=== PATIENT | female | born 1945 | race Caucasian/White ===

== ENCOUNTER 2019-12-14 18:27 | Observation (INO) | payer MEDICARE, OTHER, SELFPAY ==
--- NOTE | 2019-12-14 18:57 | ECG_ITS ---
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 Measurements Intervals [place] Rate: 88 P: 24 VT: 164 QRS: -35 QRSD: 153 T: 104 QT: 397 QTc: 483 Interpretive Statements SINUS RHYTHM MARKED LEFT AXIS DEVIATION [QRS AXIS < -30] LEFT BUNDLE BRANCH BLOCK [120+ ms QRS DURATION, 80+ ms Q/S IN V1/V2, 85+ ms R IN I/aVL/V5/V6] No previous ECG available for comparison Electronically Signed On 12-15-2019 9:52:29 CDT by Peter Moncada M.D. [id number]
--- NOTE | 2019-12-14 18:57 | XRR_ITS ---
PROCEDURE INFORMATION: Exam: XR Chest, 1 View Exam date and time: 12/14/2019 7:31 PM Age: 74 years old Clinical indication: Radiating; Patient HX: Chest pain, warm feeling spreading from left to right; Additional info: Cp TECHNIQUE: Imaging protocol: XR of the chest Views: Frontal portable upright view of the chest. COMPARISON: No relevant prior studies available. FINDINGS: Lungs: The lungs are clear bilaterally. The pulmonary vasculature is normal. Pleural space: No pleural effusion. No pneumothorax. Heart/Mediastinum: The heart is normal in size and contour. Bones/joints: No acute chest wall abnormality identified. Rightward thoracolumbar spinal curvature. Organs: The gallbladder is likely surgically absent, with metallic clips overlying the gallbladder fossa. XR/XR chest 1V portable [id number] IMPRESSION: 1. No acute cardiopulmonary abnormality identified. 2. Prior cholecystectomy.
[2019-12-14 19:02] VITALS: BP 176/91; PULSE 89; RESP 18; TEMP 36.8; O2SAT 96; BMI 25.7
[2019-12-14 21:49] LABS: Basophils % 0.5 %; Eosinophils # 0.1 10^3/uL (0.0-0.8); Eosinophils % 0.8 %; Hematocrit 38.1 % (37.0-47.0); Hemoglobin 12.1 g/dL (11.5-15.3); Lymphocytes # 2.5 10^3/uL (0.8-4.8); Lymphocytes % 33.5 %; Mean Corpuscular HGB Conc 31.8 g/dL (30.0-36.0); Mean Corpuscular Hemoglobin 28.8 pg (28.0-34.0); Mean Corpuscular Volume 90.7 fL (81-99); Mean Platelet Volume 9.8 fL (7.4-10.4); Monocytes # 0.4 10^3/uL (0.2-0.9); Monocytes % 5.1 %; Neutrophils # 4.47 10^3/uL (1.8-7.7); Nucleated Red Blood Cells % 0 %; Platelet Count 366 10^3/cmm (130-400); Red Cell Distribution Width 12.3 % (12.1-15.1); White Blood Count 7.5 10^3/uL (4.0-10.0)
--- NOTE | 2019-12-14 21:59 | W.ED.CHESTPA ---
HPI - Chest Pain General: Chief Complaint: Chest Pain Stated Complaint: sob/ sore throat/ warm sens on chest Time Seen by Provider: 12/14/19 21:35 History of Present Illness: HPI narrative: Patient is a 74-year-old female comes to the ED with chest pain and shortness of breath. Patient has a past medical history of GERD, hypothyroidism, PVCs, seasonal allergies and hypertension. Patient was seen by family clinic today and they did a d-dimer test on patient and told her that it was elevated. Patient also describes having some bilateral lower extremity swelling with episodic pain behind the knee. Family clinic then told patient to come to the ED to check legs for blood clot. Patient says her chest pain started today. She describes the chest pain more as a discomfort and it is very brief and episodic. Pain is not sharp or intense. It is more of a dull discomfort in the chest. She is currently not having any chest pain while here in the ED. The shortness of breath that she has is also episodic and brief. She says she only gets the shortness of breath when she is up moving. She states it is mild and noticed that it started approximately 2 weeks ago. Patient also endorses having some worsening GERD symptoms over the past couple days as well. Denies any fever, chills, productive cough, hemoptysis, nausea/vomiting, bladder or bowel symptoms. Associated symptoms: Reports abdominal pain (Epigastric pain.) and dyspnea (Only during exertion.); Deny fever(s), nausea, palpitations or vomiting Review of Systems Const: Denies: fever(s), chills or fatigue Eyes: Denies: change in vision or eye discomfort ENMT: Reports: throat pain (Patient has had a mild sore throat for the past 2 weeks due to allergies and nasal drainage.), nasal discharge (Patient has allergies and has drainage that goes down the back of her throat causing irritation.) and post nasal drip; Denies: odynophagia or nasal congestion Card: Reports: chest pain (Chest discomfort) and dyspnea on exertion; Denies: palpitations, edema, swelling of feet/ankles or orthopnea Resp: Reports: dyspnea (Only during exertion.); Denies: productive cough or non-productive cough GI: Reports: abdominal pain (Epigastric pain.); Denies: nausea, vomiting, diarrhea, constipation or hematochezia : Denies: flank pain, dysuria or hematuria Musc: Denies: neck pain, back pain or extremity swelling Skin/Breast: Denies: rash or new lesions Neuro: Denies: headache(s), numbness in extremities or weakness in extremities Physical Exam Const: COMMON NORMALS: no acute distress, patient oriented x3, healthy appearing and alert GENERAL APPEARANCE: cooperative and comfortable HENMT: COMMON NORMALS: normocephalic HEAD & SCALP: normocephalic MOUTH: Normal oral and palatal mucosa present THROAT: uvula midline and posterior oropharynx abnormal cobblestoning Eye: COMMON NORMALS: Equal, round and reactive pupils present PUPIL: Yes Equal, round and reactive pupils present Neck/C-Spine: COMMON NORMALS: supple GENERAL: Yes normal visual inspection Resp: COMMON NORMALS: normal respiratory effort, No retractions, No use of accessory muscles and clear to auscultation bilaterally EFFORT & INSPECTION: Yes able to speak in complete sentences, No tachypneic, No respiratory distress, No labored and No Actively coughing AUSCULTATION: clear to auscultation bilaterally Cardio: COMMON NORMALS: regular rate, regular rhythm, S1 normal heart sound present, S2 normal heart sound present, No gallops present (Cardio), No clicks present (Cardio), No murmurs present (Cardio) and Peripheral pulses 2+ throughout RATE: regular rate RHYTHM: regular rhythm HEART SOUNDS: S1 normal heart sound present and S2 normal heart sound present PERIPHERAL PULSES: Peripheral pulses 2+ throughout GI: COMMON NORMALS: Normal to inspection, nondistended, normoactive bowel sounds present, Soft to palpation and no masses PALPATION: Yes Soft to palpation and Yes Tenderness to palpation present (GI) Details: other (Mild epigastric area tenderness.) : COMMON NORMALS: Yes no CVA tenderness BLADDER/KIDNEY EXAM: Yes no CVA tenderness Back/Pelvis: COMMON NORMALS: no CVA tenderness Extremity: COMMON NORMALS: normal to inspection and no pedal edema Neuro: COMMON NORMALS: patient oriented x3 and moves all extremities SENSORIUM/ORIENTATION: Yes alert Skin: COMMON NORMALS: no rashes or lesions noted GENERAL SKIN EXAM: no rashes or lesions noted and dry skin Course Consultations: Consultation #1: I spoke with Dr. Nix about patient case and and he agreed to bring patient in on observation. Vital Signs: Vital signs: Vital Signs Temperature 97.7 F 08/26/20 01:15 Pulse Rate 82 12/15/19 01:15 Respiratory Rate 14 12/15/19 01:15 Blood Pressure 176/88 12/15/19 01:15 Pulse Oximetry 94 12/15/19 01:15 MDM - Chest Pain MDM Narrative: Medical decision making narrative: Patient is a 74-year-old female comes to the ED with some chest pain and shortness of breath. Patient was sent over here by her PCP due to an elevated d-dimer. Physical exam was unremarkable patient appears well in no acute distress. D-dimer 2.11. Ultrasound venous duplex of both right and left lower extremity showed no DVTs or blood clots. CTA of chest was performed that showed multiple bilateral segmental and subsegmental PEs. Patient was given a dose of Lovenox while here in the ED. I contacted Dr. Nix about patient case and he would like patient to be brought in on observation. I told Dr. Myers and he will be placing the orders. Patient understood and agreed with plan. Lab Data: Attestation: I reviewed the patient's lab results. Labs: Lab Results 12/14/19 12/14/19 12/14/19 Range/Units 21:44 21:44 21:44 WBC 7.5 (4.0-10.0) 10^3/ uL RBC 4.20 (4.1-5.3) 10^6/u L Hgb 12.1 (11.5-15.3) g/dL Hct 38.1 (37.0-47.0) % MCV 90.7 (81-99) fL MCH 28.8 (28.0-34.0) pg MCHC 31.8 (30.0-36.0) g/dL RDW 12.3 (12.1-15.1) % Plt Count 366 (130-400) 10^3/c mm MPV 9.8 (7.4-10.4) fL Neut % (Auto) 60.0 % Lymph % (Auto) 33.5 % Eaton % (Auto) 5.1 % Eos % (Auto) 0.8 % Baso % (Auto) 0.5 % Neut # (Auto) 4.47 (1.8-7.7) 10^3/u L Lymph # (Auto) 2.5 (0.8-4.8) 10^3/u L Eaton # (Auto) 0.4 (0.2-0.9) 10^3/u L Eos # (Auto) 0.1 (0.0-0.8) 10^3/u L Baso # (Auto) 0.0 (0.0-0.1) 10^3/u L Nucleated RBC % (a uto) 0 % Nucleated RBCs # 0.0 /100WBC D-Dimer (0-0.59) ug/mIFE U Sodium 140 (136-145) mmol/L Potassium 4.3 (3.5-5.1) mmol/L Chloride 101 (98-107) mmol/L Carbon Dioxide 26 (22-29) mmol/L Anion Gap 17.3 (5-19) BUN 15 (8-23) mg/dL Creatinine 1.0 H (0.5-0.9) mg/dL GFR Calculation Not Reportable Glucose 114 (65-115) mg/dL Calculated Osmolal ity 287 (285-295) mOsm/k g Calcium 10.1 (8.5-10.5) mg/dL Total Bilirubin 0.3 (0.15-1.2) mg/dL AST 29 (0-32) U/L ALT 19 (0-33) U/L Alkaline Phosphata se 57 (35-105) IU/L Troponin T Baselin e 23 H (0-10) ng/L NT-Pro-B Natriuret Pep 180 (0-450) pg/mL Total Protein 8.0 (6.6-8.7) g/dL Albumin 5.1 (3.5-5.2) g/dL Globulin 2.9 (1.3-4.6) g/dL 12/14/19 Range/Units 21:44 WBC (4.0-10.0) 10^3/ uL RBC (4.1-5.3) 10^6/u L Hgb (11.5-15.3) g/dL Hct (37.0-47.0) % MCV (81-99) fL MCH (28.0-34.0) pg MCHC (30.0-36.0) g/dL RDW (12.1-15.1) % Plt Count (130-400) 10^3/c mm MPV (7.4-10.4) fL Neut % (Auto) % Lymph % (Auto) % Eaton % (Auto) % Eos % (Auto) % Baso % (Auto) % Neut # (Auto) (1.8-7.7) 10^3/u L Lymph # (Auto) (0.8-4.8) 10^3/u L Eaton # (Auto) (0.2-0.9) 10^3/u L Eos # (Auto) (0.0-0.8) 10^3/u L Baso # (Auto) (0.0-0.1) 10^3/u L Nucleated RBC % (a uto) % Nucleated RBCs # /100WBC D-Dimer 2.11 H (0-0.59) ug/mIFE U Sodium (136-145) mmol/L Potassium (3.5-5.1) mmol/L Chloride (98-107) mmol/L Carbon Dioxide (22-29) mmol/L Anion Gap (5-19) BUN (8-23) mg/dL Creatinine (0.5-0.9) mg/dL GFR Calculation Glucose (65-115) mg/dL Calculated Osmolal ity (285-295) mOsm/k g Calcium (8.5-10.5) mg/dL Total Bilirubin (0.15-1.2) mg/dL AST (0-32) U/L ALT (0-33) U/L Alkaline Phosphata se (35-105) IU/L Troponin T Baselin e (0-10) ng/L NT-Pro-B Natriuret Pep (0-450) pg/mL Total Protein (6.6-8.7) g/dL Albumin (3.5-5.2) g/dL Globulin (1.3-4.6) g/dL Imaging Data^: CXR: Attestation: I personally reviewed and interpreted this imaging study as follows: My impression: Chest x-ray showed no acute findings. Pending final radiology report. US Vascular: Attestation: I personally reviewed and interpreted this imaging study as follows: Radiologist's impression: Ultrasound venous duplex of lower extremities bilaterally no DVTs or blood clots seen. CTA Chest: Attestation: I personally reviewed and interpreted this imaging study as follows: Radiologist's impression: [address] [place] [address] CT Scan Report Signed Patient: Kristen Jimenes Unit #: [id number] : 1945 Age/Sex: 74 / F ADM Date: 12/14/19 Loc: ER Room/Bed: Attending Dr: Ordering Provider/Ordering MD: Martin Casiano Date of Service: 12/14/19 Procedure(s): CT angio chest PE protcl [id number] Accession Number(s): [id number] Report Number: [id number] PROCEDURE INFORMATION: Exam: CT Angiography Chest With Contrast Exam date and time: 12/14/2019 11:14 PM Age: 74 years old Clinical indication: Shortness of breath; Chest pain; Additional info: SOB with elevated d-dimer TECHNIQUE: Imaging protocol: Computed tomographic angiography of the chest with intravenous contrast. 3D rendering (Not supervised by radiologist): MIP and/or 3D reconstructed images were created by the technologist. Radiation optimization: All CT scans at this facility use at least one of these dose optimization techniques: automated exposure control; mA and/or kV adjustment per patient size (includes targeted exams where dose is matched to clinical indication); or iterative reconstruction. Contrast material: VISI; Contrast volume: 77 ml; Contrast route: INTRAVENOUS (IV); COMPARISON: CR XR chest 1V portable [id number] 12/14/2019 7:17 PM RADIATION DOSE METRICS: Total DLP (mGy-cm): 624.27 FINDINGS: Pulmonary arteries: Multiple bilateral segmental to subsegmental pulmonary emboli. Aorta: Unremarkable. No aortic aneurysm. No aortic dissection. Lungs: Unremarkable. No consolidation. No masses. Pleural space: Unremarkable. No pneumothorax. No pleural effusion. Heart: Unremarkable. No cardiomegaly. No pericardial effusion. Lymph nodes: Unremarkable. No enlarged lymph nodes. Stomach and bowel: Diverticulosis without diverticulitis. Bones/joints: Unremarkable. No acute fracture. Soft tissues: Unremarkable. CT/CT angio chest PE protcl [id number] IMPRESSION: 1. Multiple bilateral segmental to subsegmental pulmonary emboli. 2. Diverticulosis without diverticulitis. Radiation Dose CTDIVOL = (mGy): DLP = 624.27 (mGy-cm) Dictated By: Domenic Rider MD Signed By: Domenic Rider MD Signed Date/Time: 12/15/1911 DD/ EKG Data^: EKG 1: Attestation: I personally reviewed and interpreted this EKG as follows: EKG interpretation date: 12/14/19 Interpretation: Sinus sinus rhythm, 88 bpm, no ST segment elevation or depression seen. Left bundle branch block. Discharge Plan Discharge Patient Disposition: Placed in Observation Admit Provider: Matilda Nix Clinical Impression: Pulmonary embolism, bilateral Condition: Stable Referrals: Leon Epps DO [Primary Care Provider] - Discharge Date/Time: 12/15/19 01:16 Coding Level of Care Code ED [employer] Consultant for Chg Fwd Exam Comprehensive
--- NOTE | 2019-12-14 22:00 | USCV_ITS ---
Kristen Jimenes Age: 74 Gender: F : 1945 Exam Date: 12/14/2019 22:52 Ordering Phys: Martin Casiano Technologist: Laura Mercado Exam Location: [facility] – [place] Indication: leg pain HISTORY: Lower extremity pain. PROCEDURES: Venous duplex imaging was performed in bilateral lower extremities. The following venous structures were evaluated: common femoral vein, profunda vein, proximal portion of the greater saphenous vein, superficial femoral vein, and the popliteal vein. In addition, the posterior tibial and peroneal trunk were evaluated. FINDINGS: Normal 2-D Doppler and augmentation and compressibility throughout the lower extremity venous structures. Additional imaging through the proximal calf veins also reveals no thrombus. Limited evaluation of the greater saphenous vein is patent with no thrombus. Cystic area measuring 5.4x1.1x3.5cm noted medial to right knee. CONCLUSIONS No evidence of right lower extremity DVT. No evidence of left lower extremity DVT. Lobulated Popliteal cyst measuring 5.4 x 1.1 x 3.5cm Ron Bernabe MD (Electronically Signed) Final Date: 15 December 2019 09:46 S
[2019-12-14 22:12] LABS: Troponin(5th) Baseline 23 ng/L (0-10)
[2019-12-14 22:22] LABS: Alanine Aminotransferase 19 U/L (0-33); Albumin Level 5.1 g/dL (3.5-5.2); Alkaline Phosphatase 57 IU/L (35-105); Anion Gap 17.3 (5-19); Aspartate Amino Transferase 29 U/L (0-32); Blood Urea Nitrogen 15 mg/dL (8-23); Calcium 10.1 mg/dL (8.5-10.5); Carbon Dioxide 26 mmol/L (22-29); Chloride 101 mmol/L (98-107); Globulin 2.9 g/dL (1.3-4.6); Glucose 114 mg/dL (65-115); NT Pro B Type Natriuretic Pept 180 pg/mL (0-450); Osmolality Calculated 287 mOsm/kg (285-295); Potassium 4.3 mmol/L (3.5-5.1); Sodium 140 mmol/L (136-145); Total Bilirubin 0.3 mg/dL (0.15-1.2)
[2019-12-14 22:57] LABS: D Dimer 2.11 ug/mIFEU (0-0.59)
--- NOTE | 2019-12-14 23:04 | CTR_ITS ---
PROCEDURE INFORMATION: Exam: CT Angiography Chest With Contrast Exam date and time: 12/14/2019 11:14 PM Age: 74 years old Clinical indication: Shortness of breath; Chest pain; Additional info: SOB with elevated d-dimer TECHNIQUE: Imaging protocol: Computed tomographic angiography of the chest with intravenous contrast. 3D rendering (Not supervised by radiologist): MIP and/or 3D reconstructed images were created by the technologist. Radiation optimization: All CT scans at this facility use at least one of these dose optimization techniques: automated exposure control; mA and/or kV adjustment per patient size (includes targeted exams where dose is matched to clinical indication); or iterative reconstruction. Contrast material: VISI; Contrast volume: 77 ml; Contrast route: INTRAVENOUS (IV); COMPARISON: CR XR chest 1V portable [id number] 12/14/2019 7:17 PM RADIATION DOSE METRICS: Total DLP (mGy-cm): 624.27 FINDINGS: Pulmonary arteries: Multiple bilateral segmental to subsegmental pulmonary emboli. Aorta: Unremarkable. No aortic aneurysm. No aortic dissection. Lungs: Unremarkable. No consolidation. No masses. Pleural space: Unremarkable. No pneumothorax. No pleural effusion. Heart: Unremarkable. No cardiomegaly. No pericardial effusion. Lymph nodes: Unremarkable. No enlarged lymph nodes. Stomach and bowel: Diverticulosis without diverticulitis. Bones/joints: Unremarkable. No acute fracture. Soft tissues: Unremarkable. CT/CT angio chest PE protcl [id number] IMPRESSION: 1. Multiple bilateral segmental to subsegmental pulmonary emboli. 2. Diverticulosis without diverticulitis. Radiation Dose CTDIVOL = (mGy): DLP = 624.27 (mGy-cm)
[2019-12-14] MEDS: hydrocortisone 100 mg/2 mL SDV IVP (23:37)
[2019-12-14] MEDS: diphenhydrAMINE 50 mg/mL SDV 1mL IVP (23:37)
[2019-12-14] MEDS: sodium chloride 0.9% 500 ML IV (23:37)
[2019-12-14] MEDS: iodixanol 320 mg/mL 100mL Btl IV (23:51)
[2019-12-15] VITALS (9 sets, daily range): BP systolic 138–177; BP diastolic 66–88; PULSE 63–88; RESP 14–24; TEMP 36.4–36.8; O2SAT 92–98
--- NOTE | 2019-12-15 00:41 | P.HP_ITS ---
Providers/Chief Complaint Admitting Physician: Matilda Nix MD Primary Care Provider: Leon Epps DO Chief Complaint: sob/ sore throat/ warm sens on chest History of Present Illness Kristen Jimenes is a 74 year old female who carries history of hypertension, hypothyroidism no other significant past medical history came in with chief complaint of shortness of breath and chest discomfort. Patient is stating that her symptoms started about 1 week ago with shortness of breath which gradually got worse, she started experiencing chest pain on exertional activities, she never experienced these kind of symptoms before, she is a non-smoker, nonalcoholic, very healthy for age, lives independently. She did not spike any fever, no nausea, vomiting, diarrhea, change in her stool consistency, no swelling of her lower extremities, recent traveling, she is not leading a sedentary lifestyle, she is not on any hormonal therapy, denies history of night sweats, weight loss, fever, cancer. She is endorsing to family history of clotting disorder, her mother was on Coumadin and her first clotting disorder was identified in her 40s, patient herself never had any abortions, her children and grandchildren are healthy. Patient is stating that for last couple of years she has been having on and off episodes of palpitations without any aggravating or relieving factors, she was diagnosed with PVCs, and never had any worsening of symptoms. Diagnostics in the ER revealed segmental and subsegmental bilateral pulmonary embolism without right heart strain, BNP 180, no EKG changes for right heart strain however left bundle branch block present, troponin XX 3, patient asymptomatic at the time of my evaluation, hypertensive systolic blood pressure 176 mmHg Review of Systems Const: Reports: body aches and fatigue; Denies: fever(s) or chills Eyes: Denies: change in vision ENMT: Denies: throat pain Card: Reports: chest pain, palpitations and dyspnea on exertion; Denies: swelling of feet/ankles, pre-syncope or orthopnea Resp: Reports: dyspnea GI: Denies: abdominal pain or nausea : Denies: flank pain Musc: Denies: neck pain Skin/Breast: Denies: rash Neuro: Denies: headache(s) Psych: Denies: anxiety Endo: Denies: polyuria Feliberto/Lymph: Denies: easy bruising All/Imm: Denies: urticaria Medications/Allergies Home Medications Medication Instructions Recorded Confirmed Last Taken Type alprazolam 0.5 mg PO BID 12/14/19 12/14/19 12/13/19 History ascorbic acid (vitamin C) [Vitamin 250 mg PO DAILY 12/14/19 12/14/19 12/13/19 History C] aspirin [Aspirin Low Dose] 81 mg PO DAILY 12/14/19 12/14/19 12/13/19 History fenofibrate nanocrystallized 145 mg PO DAILY 12/14/19 12/14/19 12/14/19 History fexofenadine [Deanne Allergy] 60 mg PO BID 12/14/19 12/14/19 12/13/19 History fluticasone propionate 2 spray INTRANASAL DAILY 12/14/19 12/14/19 12/13/19 History levothyroxine 88 mcg PO DAILY 12/14/19 12/14/19 12/14/19 History loratadine 10 mg PO EVERY OTHER DAY 12/14/19 12/14/19 Unknown History lutein 10 mg PO DAILY 12/14/19 12/14/19 12/14/19 History metoprolol succinate 25 mg PO DAILY 12/14/19 12/14/19 12/14/19 History xnxirtevsxpz-Pr-rssw-minerals 1 tab PO DAILY 12/14/19 12/14/19 12/13/19 History [Multiple Vitamin, Womens] omega 0-dtu-dac-fish oil [Fish Oil] 1 cap PO DAILY 12/14/19 12/14/19 12/14/19 History omeprazole magnesium [Prilosec OTC] 20 mg PO DAILY 12/14/19 12/14/19 12/13/19 History Allergies Allergy/AdvReac Type Severity Reaction Status Date / Time amoxicillin Allergy ALGY-Rash Verified 12/14/19 21:46 PFSH Acute 2 PFSH: Medical History Diverticulosis History of normal mammogram Hypertension Hypothyroidism Normal colonoscopy Surgical History Hx laparoscopic cholecystectomy Family History Mother Clotting disorder Mother had clotting disorder in her 40s and was on Coumadin Social History Smoking and tobacco status: never smoked Alcohol intake: never Substance/Drug Use: never Lives independently: Yes Housing: House Vitals/I&O/Wt Last Vital Signs Temp 98.3 F 12/14/19 19:02 Pulse 88 12/15/19 00:00 Resp 15 12/15/19 00:00 BP 164/72 12/15/19 00:00 Pulse Ox 95 12/15/19 00:00 Weight last 48 hrs Weight 68.039 kg Physical Exam Narrative: EXAM NARRATIVE: Very pleasant elderly female No active restaurant distress Hypertensive at the moment Saturating well on room air Bilateral breath sounds without adventitious sounds S1, S2 no tachycardia or heart failure Abdomen soft nontender nondistended bowel sound present Neurologically no focal deficit EOMI, PERRLA GCS 15 Appropriate mood and affect Lower extremity varicose veins, symmetrical appearance of bilateral lower extremities Data : 12/14/19 21:44 12/14/19 21:44 A&P Assessment and plan (1) Pulmonary embolism, bilateral: Acute unprovoked symptomatic PE without right heart strain Segmental subsegmental unprovoked pulmonary embolism, family history of clotting disorder in her mother, patient herself never had any abortions, no recent traveling, no use of hormonal therapy, leading an active lifestyle, I would go ahead and start Eliquis, she received Lovenox in the ER Request echo in the morning, lower extremity Dopplers She might need hematology consult for follow-up for her acute symptomatic PE I would not get clotting disorder work-up at this time Patient is stating that her colonoscopies and mammograms have been unremarkable Status: Acute Additional A&P Information Hypertension: Might need lisinopril with her current home regimen Hypothyroidism: Continue levothyroxine Hypertriglyceridemia continue fenofibrate GERD: Omeprazole milligrams daily. DVT prophylaxis: Not indicated currently on Eliquis Full code Cardiac diet Attestations Medical Necessity Statement*: Anticipating discharge in less than 48 hours cu rrently need anticoagulation for acute symptomatic unprovoked PE Time Spent in Patient Care: (>than 50% of time spent in counselling and/or direct pt care on unit) . 40 minutes Coding Level of Care Code Acute [place] Worker for Chg Fwd Diagnoses Pulmonary embolism, bilateral I26.99
[2019-12-15] MEDS: enoxaparin 80 mg/0.8 mL Syringe 70 MG SUBCUT (00:57)
--- NOTE | 2019-12-15 00:57 | ECG_ITS ---
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 Measurements Intervals [place] Rate: 67 P: 27 NE: 191 QRS: -34 QRSD: 153 T: 80 QT: 464 QTc: 491 Interpretive Statements SINUS RHYTHM MARKED LEFT AXIS DEVIATION [QRS AXIS < -30] LEFT BUNDLE BRANCH BLOCK [120+ ms QRS DURATION, 80+ ms Q/S IN V1/V2, 85+ ms R IN I/aVL/V5/V6] Compared to ECG 12/14/2019 19:14:18 No significant changes Electronically Signed On 12-15-2019 10:25:11 CDT by Peter Moncada M.D. [id number]
[2019-12-15 02:44] LABS: Anion Gap 12.7 (5-19); Blood Urea Nitrogen 14 mg/dL (8-23); Calcium 8.9 mg/dL (8.5-10.5); Carbon Dioxide 26 mmol/L (22-29); Chloride 102 mmol/L (98-107); Creatinine Clr Calc Pharmacy 56.7003; Glucose 136 mg/dL (65-115); Osmolality Calculated 282 mOsm/kg (285-295); Potassium 3.7 mmol/L (3.5-5.1); Sodium 137 mmol/L (136-145)
[2019-12-15 02:52] LABS: Troponin 5 2HR 28.36 ng/L (0-10)
--- NOTE | 2019-12-15 07:11 | PC.NURSE ---
Shift Events: Patient arrived to unit via wheelchair. Up adlib, AO x 4. No complaints of pain or shortness of breath. Remains on room air. Snack and water provided. Questions answered to patient's satisfaction. VSS.
[2019-12-15] MEDS: apixaban 5 mg Tablet PO ×2 (08:08→14:19)
[2019-12-15] MEDS: pantoprazole DR 40 mg Tablet PO (08:09)
[2019-12-15] MEDS: metoprolol succinate ER (24 HR) 25 mg Tablet PO (08:09)
[2019-12-15] MEDS: fenofibrate 145 mg Tablet PO (08:09)
[2019-12-15] MEDS: levothyroxine 88 mcg Tablet PO (08:09)
--- NOTE | 2019-12-15 08:46 | CT_ITS ---
WS: [id number] CT ABDOMEN PELVIS TECHNIQUE: Noncontrast CT of the abdomen and pelvis with coronal and sagittal reformatted images. CLINICAL INFORMATION: LLQ abdominal density COMPARISON: CT 9 18,018 DLP: 580.[address] scans at [facility] use at least one of these dose optimization techniques: automat ed exposure control; mA and/or kV adjustment per patient size (includes targeted exams where dose is matched to clinical indication); or iterative reconstruction. FINDINGS: Noncontrast liver is normal. Normal spleen. Splenic granulomas. Cholecystectomy clips. Normal GE junc tion. Lung bases are well aerated. Adrenal glands are normal. Fatty atrophy of the pancreas. No hydro nephrosis in either kidney. Normal caliber abdominal aorta. Mild aortic calcification. Sigmoid diverticulosis. No evidence of acute diverticulitis. No evidence of small or large bowel obst ruction. No free fluid in the pelvis. No abdominal or pelvic lymphadenopathy. No inguinal lymphadenop ath0y. Moderate S-shaped lumbar scoliosis. CT/CT abdomen pelvis wo con [id number] IMPRESSION: 1. No acute abdominal or pelvic findings. 2. Prior cholecystectomy. 3. No hydronephrosis in either kidney. 4. No abdominal or pelvic lymphadenopathy. 5. No free fluid in the pelvis. 6. Sigmoid diverticulosis. No evidence of acute diverticulitis.
--- NOTE | 2019-12-15 12:04 | USCV_ITS ---
Jalil Kristen Age: 74 Gender: F : 1945 Exam Date: 12/15/2019 12:34 Ordering Phys: Arnulfo Kay MD Technologist: Ada Phillips Exam Location: [facility] Indication: Bilateral PE BP: 138 / 67 HR: 82 Rhythm: Sinus Technical Quality: Fair MEASUREMENTS (Male / Female) Normal Values 2D ECHO LV Diastolic Diameter PLAX 3.5 cm 4.2 - 5.9 / 3.9 - 5.3 cm LV Systolic Diameter PLAX 1.9 cm LV Chamber Size 4.3 cm IVS Diastolic Thickness 2.0 cm 0.6 - 1.0 / 0.6 - 0.9 cm IVS Systolic Thickness 2.1 cm LVPW Diastolic Thickness 1.3 cm 0.6 - 1.0 / 0.6 - 0.9 cm LVPW Systolic Thickness 1.2 cm RV Chamber Size 2.5 cm LVOT Diameter 1.8 cm LV Ejection Fraction 2D Teich 78.4 % LV Ejection Fraction MOD 2C 50.0 % LV Ejection Fraction 2C AL 57.0 % LA Diameter 3.6 cm LA Width 2.9 cm LA Height 5.3 cm RA Width 3.1 cm RA Height 4.6 cm Aorta at Sinotubular Diameter 2.4 cm M-MODE LV Diastolic Diameter MM 5.5 cm 4.2 - 5.9 / 3.9 - 5.3 cm LV Systolic Diameter MM 3.6 cm LV Ejection Fraction MM Teich 64.5 % IVS Diastolic Thickness MM 1.2 cm 0.6 - 1.0 / 0.6 - 0.9 cm IVS Systolic Thickness MM 1.9 cm LVPW Diastolic Thickness MM 1.5 cm 0.6 - 1.0 / 0.6 - 0.9 cm LVPW Systolic Thickness MM 1.3 cm Aortic Annulus Diameter 3.6 cm LA Ao Ratio MM 1.0 MV E Point Septal Separation 0.3 cm DOPPLER AV Peak Velocity 144.0 cm/s LVOT Peak Velocity 111.0 cm/s AV Area Cont Eq vti 2.1 cm squared AV Area Cont Eq pk 2.0 cm squared MV Area PHT 4.9 cm squared Mitral E to A Ratio 0.7 MV E' Velocity 13.0 cm/s Mitral E to MV E' Ratio 9.1 Mitral E to LV E' Lateral Ratio 6.8 Mitral E to LV E' Septal Ratio 13.5 TR Peak Velocity 308.0 cm/s TR Peak Gradient 38.0 mmHg TR Mean Velocity 241.0 cm/s TR Mean Gradient 23.7 mmHg TR Velocity Time Integral 89.4 cm TV Peak E Velocity 69.0 cm/s Right Atrial Pressure 3.0 mmHg Pulmonary Artery Systolic Pressu 40.9 mmHg PV Peak Velocity 82.0 cm/s RV Acceleration Time 0.1 s RV Ejection Time 0.3 s RV AcT/ET 0.2 FINDINGS Left Ventricle Normal left ventricular size, systolic function and mildly increased wall thickness, with no regional wall motion abnormalities. Left ventricular ejection fraction is estimated at 65%. Normal diastolic function. Abnormal septal motion consistent with conduction abnormality. Right Ventricle Normal right ventricular size and systolic function. Right ventricular systolic pressure 44 mmHg. Right Atrium Normal right atrial size. Right atrial pressure estimated at 8 mmHg. Left Atrium Upper normal left atrial size. Mitral Valve Structurally normal mitral valve. No mitral valve stenosis. Trace mitral valve regurgitation. Aortic Valve Aortic valve not well visualized. Probably tricuspid aortic valve. No aortic valve stenosis. No aortic valve regurgitation. Tricuspid Valve Structurally normal tricuspid valve. Mild tricuspid valve regurgitation. Pulmonic Valve No pulmonary valve stenosis. Trace pulmonary valve regurgitation. Pericardium No pericardial effusion. Inferior vena cava mildly dilated at 22 mm. Aorta Normal size aortic root and proximal ascending aorta. CONCLUSIONS 1. Normal left ventricular size, systolic function and mildly increased wall thickness, with no regional wall motion abnormalities. Left ventricular ejection fraction is estimated at 65%. Normal diastolic function. Abnormal septal motion consistent with conduction abnormality. 2. Mild tricuspid valve regurgitation. 3. Mild pulmonary hypertension with pulmonary artery pressure estimated at 44 mmHg. 4. Right atrial pressure estimated at 8 mmHg. 5. No prior similar studies to compare. Siria Bone MD (Electronically Signed) Final Date: 15 December 2019 14:23 S
--- NOTE | 2019-12-15 12:09 | ECG_ITS ---
[facility] Test Date: 2019-12-15 Pat Name: Kristen Jmienes Department: Room: 111 Gender: Female Application Development Liaison: : 1945 Requested By: Arnulfo Kay Order Number: [id number] Leslie MD: Peter Moncada M.D. Measurements Intervals [place] Rate: 72 P: 28 FL: 200 QRS: -36 QRSD: 156 T: 93 QT: 464 QTc: 509 Interpretive Statements SINUS RHYTHM MARKED LEFT AXIS DEVIATION [QRS AXIS < -30] LEFT BUNDLE BRANCH BLOCK [120+ ms QRS DURATION, 80+ ms Q/S IN V1/V2, 85+ ms R IN I/aVL/V5/V6] Compared to ECG 12/15/2019 05:54:28 No significant changes Electronically Signed On 12-15-2019 18:06:53 CDT by Peter Moncada M.D. [id number]
--- NOTE | 2019-12-15 12:10 | PM.DCS ---
Discharge Providers Date of Admission: 12/15/19 00:35 Date of Discharge: December 15, 2019 Attending Provider at Admission: Matilda Nix MD Attending Provider at Discharge: Arnulfo Kay MD Primary Care Provider: Leon Epps DO Diagnoses at Discharge Discharge Diagnosis (1) Pulmonary embolism, bilateral: Status: Acute Reason for Visit Reason for Visit: sob/ sore throat/ warm sens on chest Hospital Course Discharge Summary: This is a 74-year-old female with a past medical history of hypertension, hypothyroidism, no other significant past medical history who presents to [facility] due to complaints of chest pain and shortness of breath. Patient was admitted to [facility] for chest pain and shortness of breath secondary to multiple bilateral segmental to sub-segmental pulmonary emboli. Patient's troponin at baseline was 23, EKG showed left axis deviation, left bundle branch block, T wave inversions in lateral chest leads, no previous EKG to compare to. Patient hemodynamics were within normal limits, did not require any on any oxygen, ambulating without any significant symptomatology, no repeat episodes of chest pain or shortness of breath. Echocardiogram on discharge showed: Normal left ventricular size, systolic function and mildly increased wall thickness, with no regional wall motion abnormalities. Left ventricular ejection fraction is estimated at 65%.Patient was discharged on Eliquis, with repeat blood work in a week. In terms of the etiology of pulmonary embolism, no history of recent surgeries, no immobility, no falls, no travel, does have a family history of DVTs in her mother, no family history of other coagulopathies, colonoscopy 2 years ago was within normal limits, is been many years since her last mammogram, she does not have any significant smoking history. Patient was advised to follow-up with her primary care provider for routine cancer screening, including mammography. Patient was advised that as she is being discharged on blood thinner, if she were to fall come back to emergency room, if she were to have head trauma come back to emergency room, if she were to have bloody or black stools come back to the emergency room. Physical Exam Const: COMMON NORMALS: no acute distress and patient oriented x3 HENMT: COMMON NORMALS: normocephalic HEAD & SCALP: normocephalic Neck/C-Spine: COMMON NORMALS: no JVD Resp: COMMON NORMALS: normal respiratory effort, No retractions, No use of accessory muscles and clear to auscultation bilaterally AUSCULTATION: clear to auscultation bilaterally Cardio: COMMON NORMALS: no JVD, regular rate, regular rhythm, S1 normal heart sound present and S2 normal heart sound present RATE: regular rate RHYTHM: regular rhythm HEART SOUNDS: S1 normal heart sound present and S2 normal heart sound present GI: COMMON NORMALS: Normal to inspection, nondistended, normoactive bowel sounds present, Soft to palpation, non-tender, No hepatosplenomegaly present, no masses and no bruits PALPATION: Yes Soft to palpation and Yes No hepatosplenomegaly present Extremity: COMMON NORMALS: capillary refill normal, no clubbing, cyanosis or edema, no calf tenderness and no pedal edema Neuro: COMMON NORMALS: patient oriented x3 Psych: COMMON NORMALS: mental status grossly normal Discharge Data Data Completed and Pending: Completed Studies During Hospitalization Category Date Time Status CT abdomen pelvis wo con [id number] Stat Cat Scan 12/15/19 08:[address] angio chest PE protcl [id number] Urge nt Cat Scan 12/14/19 23:04 Completed XR chest 1V denisse ble [id number] Stat Exams 12/14/19 18:57 [place] [id number] Urgent Ultrasound 12/14/19 22:00 Completed Pending at discharge Category Date Time Status Troponin(5th) 2 H our. Timed Lab 12/15/19 14:09 Ordered Troponin(5th) 6 h our. Timed Lab 12/15/19 18:09 Ordered Troponin(5th) Bas hany Stat Lab 12/15/19 12:09 Ordered CV echo complete* [id number] Routine Ultrasound 12/15/19 01:33 Ordered CV echo complete* [id number] Stat Ultrasound 12/15/19 12:04 Ordered Labs from last 24 hours 12/15/19 12/14/19 12/14/19 02:10 21:44 21:44 WBC RBC Hgb Hct MCV MCH MCHC RDW Plt Count MPV Neut % (Auto) Lymph % (Auto) [place] % (Auto) Eos % (Auto) Baso % (Auto) Neut # (Auto) Lymph # (Auto) [place] # (Auto) Eos # (Auto) Baso # (Auto) Nucleated RBC % (a uto) Nucleated RBCs # D-Dimer 2.11 H Sodium 137 Potassium 3.7 Chloride 102 Carbon Dioxide 26 Anion Gap 12.7 BUN 14 Creatinine 0.8 GFR Calculation Not Reportable Glucose 136 H Calculated Osmolal ity 282 L Calcium 8.9 Total Bilirubin AST ALT Alkaline Phosphata se Troponin T Baselin e 23 H Troponin T 120 Min [place] Delta Troponin T NT-Pro-B Natriuret Pep Total Protein Albumin Globulin 12/14/19 12/14/19 12/14/19 21:44 21:44 02:10 WBC 7.5 RBC 4.20 Hgb 12.1 Hct 38.1 MCV 90.7 MCH 28.8 MCHC 31.8 RDW 12.3 Plt Count 366 MPV 9.8 Neut % (Auto) 60.0 Lymph % (Auto) 33.5 [place] % (Auto) 5.1 Eos % (Auto) 0.8 Baso % (Auto) 0.5 Neut # (Auto) 4.47 Lymph # (Auto) 2.5 [place] # (Auto) 0.4 Eos # (Auto) 0.1 Baso # (Auto) 0.0 Nucleated RBC % (a uto) 0 Nucleated RBCs # 0.0 D-Dimer Sodium 140 Potassium 4.3 Chloride 101 Carbon Dioxide 26 Anion Gap 17.3 BUN 15 Creatinine 1.0 H GFR Calculation Not Reportable Glucose 114 Calculated Osmolal ity 287 Calcium 10.1 Total Bilirubin 0.3 AST 29 ALT 19 Alkaline Phosphata se 57 Troponin T Baselin e Troponin T 120 Min [place] 28.36 H Delta Troponin T TNP NT-Pro-B Natriuret Pep 180 Total Protein 8.0 Albumin 5.1 Globulin 2.9 Vitals: Last Vital Signs Temp 97.5 F L 12/15/19 07:25 Pulse 63 12/15/19 07:25 Resp 21 H 12/15/19 07:25 BP 138/67 12/15/19 07:25 Pulse Ox 95 12/15/19 07:25 Discharge Plan Discharge Patient Disposition: Home Condition: Stable Prescriptions: New Earlinequis DVT-PE Treat 30D Start 5 mg (74 tabs) tablets,dose pack See Rx Instructions .ROUTE .COMPLEX Qty: 74 RF: 0 Continued Deanne Allergy 60 mg Tablet 60 mg PO BID RF: 0 Aspirin Low Dose 81 mg Tablet,Delayed Release (Dr/Ec) 81 mg PO DAILY RF: 0 levothyroxine 88 mcg tablet 88 mcg PO DAILY RF: 0 alprazolam 0.5 mg tablet 0.5 mg PO BID PRN (Reason: Anxiety) RF: 0 Vitamin C 250 mg Tablet 250 mg PO DAILY RF: 0 metoprolol succinate 25 mg tablet extended release 24 hr 25 mg PO DAILY RF: 0 fluticasone propionate 50 mcg/actuation spray,suspension 2 spray INTRANASAL DAILY RF: 0 loratadine 10 mg tablet 10 mg PO EVERY OTHER DAY RF: 0 Multiple Vitamin, Womens Tablet 1 tab PO DAILY RF: 0 Prilosec OTC 20 mg Tablet,Delayed Release (Dr/Ec) 20 mg PO DAILY RF: 0 fenofibrate nanocrystallized 145 mg tablet 145 mg PO DAILY RF: 0 lutein 10 mg Tablet 10 mg PO DAILY RF: 0 Fish Oil 300-1,000 mg Capsule 1 cap PO DAILY RF: 0 Discharge Orders: Discharge Order (Routine); Ordered 12/15/19 Ordered By: Arnulfo Kay Referrals: Brent Hamm MD [Hospitalist] - 7-10 days ([facility] WILL CALL YOU WITH A FOLLOW UP APPOINTMENT WITH DR. HAMM AT THE [facility] TO BE SEEN IN 7-10 DAYS. ) Leon Epps DO [Primary Care Provider] - 4-7 days (YOU WILL HAVE AN APPOINTMENT WITH DR EPPS AT [facility] ON AT 11:40 AM. IF YOU HAVE ANY QUESTIONS PLEASE CALL [phone]) Discharge Diet: Cardiac Discharge Activity: Resume usual activity Patient Instructions: Apixaban (By mouth), Pulmonary Embolism (DC) Activity Restrictions/Additional Instructions: -Please follow-up with primary care physician for breast cancer screening Discharge Attestations Time Spent in Discharge Care*: less than 30 min Quality Metrics Clinical Quality Measures During this hospital stay, did patient experience: None Coding Level of Care Code Acute Certified Real Estate Appraiser for Chg Fwd Exam Comprehensive Diagnoses Pulmonary embolism, bilateral I26.99
[2019-12-15 13:03] LABS: Troponin(5th) Baseline 20 ng/L (0-10)
--- NOTE | 2019-12-15 14:09 | ECG_ITS ---
[facility] Test Date: 2019-12-15 Pat Name: Kristen Jimenes Department: Room: 111 Gender: Female Employment Advisor: : 1945 Requested By: Arnulfo Kay Order Number: [id number] Leslie MD: Peter Moncada M.D. Measurements Intervals [place] Rate: 68 P: 25 OR: 191 QRS: -40 QRSD: 154 T: 59 QT: 451 QTc: 481 Interpretive Statements SINUS RHYTHM MARKED LEFT AXIS DEVIATION [QRS AXIS < -30] LEFT BUNDLE BRANCH BLOCK [120+ ms QRS DURATION, 80+ ms Q/S IN V1/V2, 85+ ms R IN I/aVL/V5/V6] Compared to ECG 12/15/2019 13:03:30 No significant changes Electronically Signed On 12-15-2019 18:15:37 CDT by Peter Moncada M.D. [id number]
[2019-12-15 14:58] LABS: Troponin 5 2HR 19.85 ng/L (0-10)
[2019-12-15 15:07] LABS: Troponin 5 2HR Delta -0.15 ABS# (0-10)
[2019-12-15] MEDS: apixaban 5 mg Tablet 10 MG PO (17:35)
--- NOTE | 2019-12-15 18:09 | ECG_ITS ---
[facility] Test Date: 2019-12-15 Pat Name: Kristen Jimenes Department: Room: 111 Gender: Female Venereal Disease Control Head: : 1945 Requested By: Arnulfo Kay Order Number: [id number] Leslie MD: Peter Moncada M.D. Measurements Intervals [place] Rate: 75 P: 41 [place]: 199 QRS: -36 QRSD: 152 T: 97 QT: 431 QTc: 482 Interpretive Statements SINUS RHYTHM MARKED LEFT AXIS DEVIATION [QRS AXIS < -30] LEFT BUNDLE BRANCH BLOCK [120+ ms QRS DURATION, 80+ ms Q/S IN V1/V2, 85+ ms R IN I/aVL/V5/V6] Compared to ECG 12/15/2019 14:45:45 No significant changes Electronically Signed On 12-15-2019 18:38:40 CDT by Peter Moncada M.D. [id number]
[2019-12-15 18:51] LABS: Troponin 5 6HR 18.81 ng/L (0-10)
[2019-12-15 18:54] LABS: Troponin 5 6HR Delta -1.19 ng/L (0-12)
--- NOTE | 2019-12-15 19:36 | PC.NURSE ---
Patient was given discharge instructions and verbalized understanding. Patient signed discharge paper at 1930. VSS and patient has no complaints at this time. Oxygen saturation 97 percent on room air. IV removed with catheter intact.
--- NOTE | 2019-12-15 19:53 | PC.NURSE ---
Patient left via ambulatory with funeral car driver.
--- NOTE | 2019-12-17 08:23 | PC.RESP ---
PATIENT DOES NOT HAVE A QUALIFYING HX OF LUNG DISEASE AND DOES NOT QUALIFY FOR PULMONARY REHAB AT THIS TIME.
== END 2019-12-15 19:54 | disposition home or self-care (01) ==
LOC: ER 12-15 00:34 → CSU 12-15 07:44
PROVIDERS: Emergency Medicine; Admitting Provider Internal Medicine; Emergency Provider Physician Assistant; PCP Family Medicine; Visit Provider Family Medicine
DX: I26.99 Other pulmonary embolism without acute cor pulmonale (principal); I44.7 Left bundle-branch block, unspecified; I10 Essential (primary) hypertension; E03.9 Hypothyroidism, unspecified; I36.1 Nonrheumatic tricuspid (valve) insufficiency; E78.1 Pure hyperglyceridemia; K21.9 Gastro-esophageal reflux disease without esophagitis; I27.20 Pulmonary hypertension, unspecified; Z90.49 Acquired absence of other specified parts of digestive tract; K57.30 Diverticulosis of large intestine without perforation or abscess without bleeding; Z79.899 Other long term (current) drug therapy; Z79.82 Long term (current) use of aspirin; Z79.890 Hormone replacement therapy
CPT/HCPCS: 12345; 36415; 71045; 71275; 74176; 80048; 80053; 83880; 84484; 85025; 85378; 93005; 93306; 93970; 96361; 96372; 96374; 96375; 97165; 99282; 99285; G0378; J1200; J1650; J1720; J7040; Q9967

== ENCOUNTER 2020-01-10 09:54 | Outpatient (CLI) | payer MEDICARE, OTHER, SELFPAY ==
--- NOTE | 2020-01-10 18:51 | ONC CON_ITS ---
Dr. Aggarwal New Patient Note Patient: Kristen Jimenes Unit #: [id number]: 1945 Dicatated By: Brent Aggarwal M.D.Date of Visit: Jan 10, 2020 Onc MED New Patient/Consult Referring Physician: Arnulfo Kay Chief Complaint: Pulmonary embolism. History of Present Illness: This is a 74 year-old woman with a recent episode of pulmonary embolism. On 12/14/2019 she had presented to the emergency room with shortness of breath. She has been having symptoms intermittently for as much as 2 weeks, but an episode of more severe sharp pain in her lateral left chest area prompted her to see her primary care provider who recommended that she go to the emergency room. Her evaluation there included a CT pulmonary angiogram which showed multiple bilateral segmental to subsegmental pulmonary emboli. There were no pulmonary nodules, enlarged lymph nodes, or other evidence of underlying malignancy. Bilateral lower extremity venous Doppler study showed no evidence for deep vein thrombosis. She was admitted to the hospital and she began anticoagulation with apixaban. CT abdomen/pelvis the following day also showed no evidence for underlying malignancy or other acute pathology. Echocardiogram showed mild tricuspid valve regurgitation and mild pulmonary hypertension. There is normal left ventricular systolic function with estimated ejection fraction at 65%. She was discharged home to continue anticoagulation with apixaban. She has been feeling pretty good generally. She still has somewhat limited activity, but at least some if not most of that is related to her knee problems. Her ECOG score is 1. She has good appetite. She has no fever, night sweats, or hot flashes. She says her breathing is okay now. She does not complain of cough. She has had only very occasional chest pain since the hospitalization. Her heart is occasionally irregular, but that is not new. She does have some acid reflux, and that has been worse since her medication was changed from pantoprazole to omeprazole. She has some constipation, but her bowel function has been adequate with stool softeners. She complains that her bladder and her uterus have fallen, but bladder function has been okay other than occasional mild hesitancy. She has pain in her knees and legs, right worse than left. She does not complain of headache. She has had some lightheadedness since she started the apixaban. She has no focal neurologic symptoms. Past Medical History: Her medical history consists of gastroesophageal reflux disease, hyperlipidemia, hypertension, and hypothyroidism. Past Surgical History: Her surgical/procedural history includes cholecystectomy and left breast lumpectomy x 2 for benign disease. Medications: Eliquis 1 Tablet (of 2.5 mg) Oral b.i.d., Fenofibrate 1 Tablet (of 145 mg) Oral daily, Fish Oil 1 Capsule (of 1200 mg) Oral daily, Levothyroxine Sodium 1 Tablet (of 88 mcg) Oral daily, Loratadine 1 Tablet (of 10 mg) Oral daily, Lutein 1 Tablet (of 20 mg) Oral daily, Metoprolol Succinate ER 1 Tablet Tablet SR 24 HR Oral daily, Multivitamin 1 Tablet Oral daily, PriLOSEC 1 Capsule (of 20 mg) Capsule Delayed Release Oral daily, Probiotic 1 Capsule Oral daily, Stool Softener 2 - 3 Tablet (of 100 mg) Oral daily, Vitamin C 3 - 4 Capsule (of 500 mg) Oral daily Allergies: Amoxicillin, contrast dye , and food dye. Social History: Ms. Jimenes is . She smoked for couple of years when she was much younger. She does not drink alcohol. Family History: Father of heart failure at age 86. Mother still living at age 94. She has a pacemaker and she has macular degeneration. A brother is in good health and age 74. Her maternal grandfather had bladder cancer and a maternal great-grandmother had breast cancer. Review Of Symptoms: Constitutional - Her energy is OK, but she has limited activity. Appetite is good and weight is stable. No fever, night sweats, or hot flashes. ECOG score is 1, Eyes - She thinks her vision may be a little worse. She has been told she has early cataracts, ENMT - No hearing loss. She has tinnitus. She has allergy related sinus symptoms. No mouth sores. No sore throat or difficulty swallowing, Hematologic/Lymphatic - No abnormal bruising or bleeding, Respiratory - She was having shortness of breath, but her breathing is OK now. No cough. No pleuritic pain or hemoptysis, Cardiovascular - No angina pain. Her heart is occasionally irregular, Gastrointestinal - No nausea or vomiting. She has acid reflux. It has not been as well-controlled since her medication was changed from pantoprazole to omeprazole. She has constipation, but it is adequately managed with stool softeners. No blood in the stool or black stools, Genitourinary (F) - No dysuria or hematuria. No urinary frequency. No urgency or incontinence. She sometimes has mild hesitancy, Musculoskeletal - She has pain in her knees and legs, right worse than left, Integumentary - She had a slight skin rash on the lower legs when she first started the apixaban, but it is better now, Neurologic - No headache. She has had a little bit of lightheadedness at times since she started Eliquis. No numbness or tingling. No other focal neurologic symptoms, Psychiatric - She has some anxiety. No depression. She does not sleep real well. Vital Signs: Performed on Jan 10, 2020 11:07: 0, 25.71, 1.73 sq.m, 64.00 in, 98 %, 67 /min, 20 /min, 188/78 mm(hg) (HIGH), 98.3 F (LOW), and 149.8 lbs (HIGH). Physical Examination: Constitutional - She appears to be in good general health, Eyes - Sclerae nonicteric. Conjunctivae clear, ENMT - No lesions noted in the oral cavity, Neck - No mass or thyromegaly, Hematologic/Lymphatic - No cervical, clavicular, or axillary adenopathy, Respiratory - Lungs are clear with good air movement bilaterally, Cardiovascular - Heart rhythm is regular. There is no murmur, gallop, or rub noted, Abdomen - Soft and non-tender. Liver and spleen are not enlarged. There is no abdominal mass or ascites noted and there is no inguinal adenopathy, Back/Spine - No spine or CVA tenderness noted, Extremities - No edema. There are small superficial varicosities in both lower legs. Posterior tibial pulses are palpable bilaterally, Integumentary - No rashes. No suspicious skin lesions noted, Neurologic - No focal neurologic deficits noted. Impression: 1. The patient with recent episode of unprovoked pulmonary embolism. The source is uncertain. Lower extremity venous Doppler studies were negative. 2. There is no evidence of underlying malignancy on her CT pulmonary angiogram or CT abdomen/pelvis. Her other medical illnesses include: 3. Hypertension. 4. Hyperlipidemia. 5. Hypothyroidism. 6. GERD. 7. Allergic rhinitis. Plan: This patient has had a significant episode of unprovoked pulmonary embolism. Under the circumstances, I do feel that long-term anticoagulation is appropriate, as she will have a significant risk for further thromboembolism if she is not anticoagulated. As yet there is no apparent cause. In particular, there is no evidence for underlying malignancy. I am not going to undertake an evaluation for hereditary thrombophilia, as it would appear to be very unlikely clinically and it also would not change my recommendations for her management, which is to continue apixaban 5 mg twice daily for 6 to 12 months. If she is doing well at that point she can then transition to the maintenance dose of 2.5 mg twice daily. I will check with her pharmacy to see if we can get her PPI changed back to pantoprazole, as I do want to minimize any risk of GI bleeding with her anticoagulation. She is going to continue her regular follow-up with Dr. Epps. I will see her again only as needed. Signed By: Brent Aggarwal M.D. <<Signature on File>>
== END 2020-01-10 09:55 | disposition home or self-care (01) ==
PROVIDERS: PCP Family Medicine; Visit Provider Internal Medicine Medical Oncology
DX: I26.99 Other pulmonary embolism without acute cor pulmonale (principal); I10 Essential (primary) hypertension; E78.5 Hyperlipidemia, unspecified; E03.9 Hypothyroidism, unspecified; K21.9 Gastro-esophageal reflux disease without esophagitis; J30.9 Allergic rhinitis, unspecified
CPT/HCPCS: 99205

== ENCOUNTER 2020-01-14 07:44 | Outpatient (CLI) | payer MEDICARE, OTHER, SELFPAY ==
--- NOTE | 2020-01-14 07:51 | MR_ITS ---
WS: [id number] MRI RIGHT KNEE HISTORY: KNEE JOINT INSTABILITY COMPARISON: None available. Anterior cruciate ligament: Thickening and abnormal signal throughout the ACL. High-grade tear centra lly, tear may be complete. Few fibers in the anterior bundle are present but displaced and abnormal s ignal. Posterior cruciate ligament: Intact. Medial collateral ligament: Intact. Posterior lateral corner structures: Intact. Medial menisci: Horizontal tear in the posterior horn. Horizontal tear extends to the inferior articu lar surface. There is slight extrusion of the meniscus from the joint line. Lateral meniscus: Abnormal signal throughout the entire posterior horn. Blunting of the free edge and abnormal signal and fluid extend into the meniscal root. Extensor mechanism: Distal quadriceps tendon and patellar tendons are intact. Fluid and soft tissue: Small suprapatellar joint effusion. Large complex lobulated Rick's cyst. Cyst extends over a length of greater than 5.8 cm. Osseous and articular structures: Patellofemoral compartment: Chondromalacia involving the medial and lateral patellar facets. There is a full-thickness cartilage defect at the patellar eminence. No marrow edema or fracture. Medial compartment: Moderate narrowing medial compartment. Partial extrusion of the meniscus from the joint line with significant loss of cartilage. Marginal osteophytes with no marrow edema or fracture . Lateral compartment: Moderate narrowing of the lateral compartment with osteophytes from the joint li ne. Largest osteophyte measures 10 mm extending laterally from the femoral condyle. Marked extrusion of the meniscus from the joint. Loss of cartilage. Small amount of fluid adjacent to the popliteus tendon near the fibular head. Fluid collection measur es 12 mm. MR/MR knee RT wo con* [id number] IMPRESSION: 1. High-grade tear, probably complete or near complete ACL. 2. Complex tears posterior horns of the medial and lateral menisci. 3. Large Rick's cyst. 4. Tricompartment moderate osteoarthritis with joint space narrowing, chondrom alacia and osteophytes. 5. 12 mm cyst near the popliteus tendon. Suspect ganglion or bursal collection .
== END 2020-01-14 07:45 | disposition home or self-care (01) ==
LOC: RADWPI 07:48
PROVIDERS: PCP Family Medicine; Visit Provider Family Medicine
DX: M25.361 Other instability, right knee (principal); S83.511A Sprain of anterior cruciate ligament of right knee, initial encounter; M71.21 Synovial cyst of popliteal space [Baker], right knee; M17.11 Unilateral primary osteoarthritis, right knee; M22.41 Chondromalacia patellae, right knee; M25.761 Osteophyte, right knee; S83.281A Other tear of lateral meniscus, current injury, right knee, initial encounter; S83.241A Other tear of medial meniscus, current injury, right knee, initial encounter; X58.XXXA Exposure to other specified factors, initial encounter
CPT/HCPCS: 73721

== ENCOUNTER 2020-02-01 06:58 | Outpatient (CLI) | payer MEDICARE, OTHER, SELFPAY ==
--- NOTE | 2020-02-01 07:09 | ECG_ITS ---
[facility] Test Date: 2020-02-01 Pat Name: Kristen Jimenes Department: Room: Gender: Female Mailing Specialist: : 1945 Requested By: Santos Cifuentes Order Number: [id number] Leslie MD: Santos Cifuentes M.D. Interpretive Statements NAME OF STUDY: LEXISCAN SESTAMIBI STRESS TEST INDICATION: Chest Pain PROCEDURE: At the baseline, the EKG revealed sinus bradycardia left bundle branch block. Some nonspecific T wave changes. The baseline blood pressure was 170/79 mm Hg with a heart rate of 55 beats/min. Lexiscan was infused over a period of 20 seconds. A total of 0.4 milligrams of Lexiscan was infused. The stress phase was continued for a total of 5 minutes. Heart rate at the end of the stress phase was 84 with a blood pressure 146/72. The EKG at the peak infusion revealed no significant changes. Sestamibi was injected 20 seconds after the Lexiscan infusion. Blood pressure at the end of the recovery phase was 144/79 with a heart rate of 82 per minute. CONCLUSION: 1. No significant EKG changes with the LexiScan infusion 2. No LexiScan induced chest pain or cardiac arrhythmia 3. Normal blood pressure and heart rate response 4. Sestamibi/sestamibi perfusion scan pending; see separate report. Electronically Signed On 02-01-2020 18:12:05 CDT by Santos Cifuentes M.D. [id number]
--- NOTE | 2020-02-01 07:09 | NMCV_ITS ---
NM tiffanie perf SPECT r/s* [id number] Kristen Jimenes Age: 74 Gender: F : 1945 Exam Date: 02/01/2020 08:21 Ordering Phys: Santos Cifuentes MD ([email or web address]) Technologist: PORFIROI Hernandez Exam Location: [facility] Indications: Chest pain STRESS TEST [facility] IMAGE PROTOCOL Rest/Stress 1 Lexiscan Day Radiopharmaceutical Dose (mCi) Administration Site Administered by Rest: Tc-99m 10.9 IV PORFIRIO Hernandez Sestamibi Stress:Tc-99m 33.0 IV PORFIRIO Chávez Sestamibi Rest: 01-Feb-2020 60 Discovery 630 Stress: 01-Feb-2020 60 Discovery 630 0.4mg Lexiscan. Images obtained in supine and prone position. SPECT RESULTS Technical Quality: Good Raw Data Analysis: Subdiaphragmatic activity Image Corrections: No attenuation or motion correction applied Summed Stress Score: 3 Summed Rest Score: 1 Summed Difference Score: 2 PERFUSION FINDINGS A small area of slightly decreased tracer uptake was noted in the apical inferior and apical lateral wall region. Some reversibility was noted in this region, with the SPECT imaging.SPECT images demonstrate homogeneous tracer distribution throughout the myocardium. FUNCTIONAL RESULTS (calculated via Gated SPECT) Stress Image LV EF (%): 68 Stress EDV (mL):92 TID: 1.41 Stress ESV (mL):29 FUNCTIONAL FINDINGS: Segmental wall motion analysis revealing no gross wall motion normalities. IMPRESSIONS 1. Myocardial perfusion imaging revealing a small area of reversible defect in the apical region, suggestive of ischemia in the distribution of the left circumflex artery. The elevated transient ischemic dilatation ratio also may suggest endocardial ischemia. 2. Normal LV ejection fraction 68%. 3. LV wall motion analysis revealing no gross wall motion normalities. 4. Normal LV volume. No similar previous studies are available for comparison Dr Santos Cifuentes MD FACC (Electronically Signed) Final Date: 01 February 2020 18:26 S
[2020-02-01 07:28] VITALS: BMI 24.6
--- NOTE | 2020-02-01 09:27 | SUR.PREOP ---
Patient reports no pain or discomfort prior to the start of the procedure.
[2020-02-01] MEDS: regadenoson 0.4 Mg/5 ml Syringe IVP (09:30)
[2020-02-01 09:46] VITALS: BP 143/81; PULSE 82
== END 2020-02-01 06:59 | disposition home or self-care (01) ==
LOC: CDL 07:01
PROVIDERS: PCP Family Medicine; Visit Provider Internal Medicine Cardiovascular Disease
DX: R06.02 Shortness of breath (principal); R07.9 Chest pain, unspecified
CPT/HCPCS: 78452; 93017; A9500; J2785

== ENCOUNTER 2020-02-16 11:05 | Outpatient (CLI) | payer MEDICARE, OTHER, SELFPAY ==
--- NOTE | 2020-02-16 11:10 | MM_ITS ---
WS: [id number] BILATERAL SCREENING DIGITAL MAMMOGRAM WITH CAD HISTORY: SCREENING COMPARISON: 12/30/2007 Bilateral CC and MLO views submitted. Computer aided detection analyzed. Breast composition: The breasts are heterogeneously dense, which may obscure small masses. No suspici ous masses, microcalcifications or architectural distortion. Coarse benign cluster of calcifications near 12:00. MM/[place] [id number] IMPRESSION: BI-RADS: 2-Benign FOLLOW UP: 1 Year Follow-up
== END 2020-02-16 11:06 | disposition home or self-care (01) ==
PROVIDERS: PCP Family Medicine; Visit Provider Family Medicine
DX: Z12.31 Encounter for screening mammogram for malignant neoplasm of breast (principal)
CPT/HCPCS: 77067

== ENCOUNTER → 2020-03-29 11:15 | Outpatient (BNVA) | payer MEDICARE, OTHER, SELFPAY | PROVIDERS: PCP Family Medicine; Referring Provider Family Medicine; Visit Provider Specialist | DX: M25.561 Pain in right knee (principal) | CPT/HCPCS: 73560; 73565 ==

== ENCOUNTER 2020-04-03 06:00 | Outpatient (RCR) | payer MEDICARE, OTHER, SELFPAY | END 2020-04-20 23:59 | disposition home or self-care (01) | LOC: SPT 06:00 | PROVIDERS: PCP Family Medicine; Referring Provider Specialist; Visit Provider Specialist | DX: M25.561 Pain in right knee (principal) | CPT/HCPCS: 97110; 97161 ==

== ENCOUNTER 2020-04-21 06:00 | Outpatient (RCR) | payer MEDICARE, OTHER, SELFPAY | END 2020-04-25 23:00 | disposition home or self-care (01) | LOC: SPT 06:00 | PROVIDERS: PCP Family Medicine; Referring Provider Specialist; Visit Provider Specialist | DX: M25.561 Pain in right knee (principal) | CPT/HCPCS: 97110 ==

== ENCOUNTER 2020-05-31 09:00 | Outpatient (CLI) | payer MEDICARE, OTHER, SELFPAY ==
--- NOTE | 2020-05-31 09:30 | USCV_ITS ---
Jalil Kristen Age: 74 Gender: F : 1945 Exam Date: 05/31/2020 09:21 Ordering Phys: Michelle Gongora MD Technologist: Gunnar Elliott [place] [facility] [place]: PE BP: 154 / 61 HR: 55 Rhythm: Sinus Technical Quality: Fair MEASUREMENTS (Male / Female) Normal Values 2D ECHO LV Diastolic Diameter PLAX 4.5 cm 4.2 - 5.9 / 3.9 - 5.3 cm LV Systolic Diameter PLAX 2.8 cm IVS Diastolic Thickness 1.8 cm 0.6 - 1.0 / 0.6 - 0.9 cm IVS Systolic Thickness 2.1 cm LVPW Diastolic Thickness 0.9 cm 0.6 - 1.0 / 0.6 - 0.9 cm LVPW Systolic Thickness 1.6 cm LVOT Diameter 2.0 cm LV Ejection Fraction 2D Teich 67.7 % LV Ejection Fraction MOD 2C 68.4 % LV Ejection Fraction 2C AL 68.5 % LA Diameter 3.5 cm LA Width 3.2 cm LA Height 4.9 cm RA Width 3.5 cm RA Height 3.9 cm Aorta at Sinotubular Diameter 2.9 cm M-MODE LV Diastolic Diameter MM 6.0 cm 4.2 - 5.9 / 3.9 - 5.3 cm LV Systolic Diameter MM 3.8 cm LV Ejection Fraction MM Teich 66.4 % IVS Diastolic Thickness MM 1.6 cm 0.6 - 1.0 / 0.6 - 0.9 cm IVS Systolic Thickness MM 2.2 cm LVPW Diastolic Thickness MM 0.7 cm 0.6 - 1.0 / 0.6 - 0.9 cm LVPW Systolic Thickness MM 1.3 cm Aortic Annulus Diameter 3.3 cm LA Ao Ratio MM 1.1 MV E Point Septal Separation 0.7 cm DOPPLER AV Peak Velocity 99.0 cm/s LVOT Peak Velocity 84.0 cm/s AV Area Cont Eq vti 2.1 cm squared AV Area Cont Eq pk 2.7 cm squared MV Area PHT 3.4 cm squared Mitral E to A Ratio 0.8 MV E' Velocity 36.5 cm/s Mitral E to MV E' Ratio 6.0 Mitral E to LV E' Lateral Ratio 6.6 Mitral E to LV E' Septal Ratio 5.5 TR Peak Velocity 217.1 cm/s TR Peak Gradient 18.8 mmHg TR Mean Velocity 201.4 cm/s TR Mean Gradient 17.4 mmHg TR Velocity Time Integral 88.1 cm Right Atrial Pressure 8.0 mmHg Pulmonary Artery Systolic Pressu 26.8 mmHg PV Peak Velocity 60.0 cm/s RV Acceleration Time 0.1 s RV Ejection Time 0.4 s RV AcT/ET 0.3 FINDINGS Left Ventricle Normal left ventricular size. The systolic function is normal with EF of 55 to 60%. No regional wall motion abnormalities are seen. Grade 1 diastolic dysfunction is seen. Right Ventricle The right ventricle is normal in size and function. Right Atrium The right atrium is normal in size. Left Atrium The left atrium is normal in size. Mitral Valve Structurally normal mitral valve without significant stenosis or prolapse. There is mild mitral regurgitation. Aortic Valve Structurally normal aortic valve without significant sclerosis or stenosis. There is no aortic regurgitation. Tricuspid Valve Structurally normal tricuspid valve without significant stenosis. Trace tricuspid regurgitation is seen. RVSP is 30 to 35 mmHg consistent with mild pulmonary hypertension. Pulmonic Valve Grossly normal Pericardium Normal pericardium without effusion. Aorta Normal ascending aorta dimension. CONCLUSIONS LV systolic function is normal with EF of 55-60% Grade 1 diastolic dysfunction is seen Mild mitral regurgitation is present Trace tricuspid regurgitation is noted. Mild pulmonary hypertension noted Compared to prior echocardiogram from 12/15/2019, no significant changes are noted Peter Moncada MD (Electronically Signed) Final Date: 05 June 2020 12:58 S
== END 2020-05-31 09:01 | disposition home or self-care (01) ==
LOC: US 09:01
PROVIDERS: PCP Family Medicine; Visit Provider Internal Medicine Critical Care Medicine
DX: I26.99 Other pulmonary embolism without acute cor pulmonale (principal); I08.1 Rheumatic disorders of both mitral and tricuspid valves; I27.20 Pulmonary hypertension, unspecified
CPT/HCPCS: 93306

== ENCOUNTER 2021-08-20 11:48 | Outpatient (RCR) | payer MEDICARE, OTHER, SELFPAY | END 2021-09-18 23:59 | disposition home or self-care (01) | LOC: SPT 11:48 | PROVIDERS: PCP Family Medicine; Referring Provider Student in an Organized Health Care Education/Training Program; Visit Provider Student in an Organized Health Care Education/Training Program | DX: Z96.652 Presence of left artificial knee joint (principal) | CPT/HCPCS: 97110; 97112; 97116; 97161 ==

== ENCOUNTER → 2021-08-22 13:38 | Outpatient (BNVA) | payer MEDICARE, OTHER, SELFPAY | PROVIDERS: PCP Family Medicine; Visit Provider Internal Medicine Cardiovascular Disease | DX: I48.91 Unspecified atrial fibrillation (principal); R94.39 Abnormal result of other cardiovascular function study; E03.2 Hypothyroidism due to medicaments and other exogenous substances; I10 Essential (primary) hypertension; I26.99 Other pulmonary embolism without acute cor pulmonale; Z79.01 Long term (current) use of anticoagulants; Z87.891 Personal history of nicotine dependence | CPT/HCPCS: 99214 ==

== ENCOUNTER 2021-08-22 14:46 | Outpatient (CLI) | payer MEDICARE, OTHER, SELFPAY ==
--- NOTE | 2021-08-22 15:16 | XR_ITS ---
WS: [id number] Left foot, 3 views, 08/22/2021. Clinical Data: L FOOT PAIN Comparison: None. Findings: No fractures or dislocations are seen. No bone destruction or erosion is noted. There is minimal oste oarthritis of the left first MTP joint.There is a small Achilles spur and a plantar spur. 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
[2021-08-22 16:34] LABS: Uric Acid 7.5 mg/dL (2.4-5.7)
== END 2021-08-22 14:47 | disposition home or self-care (01) ==
LOC: LAB 14:50
PROVIDERS: PCP Family Medicine; Visit Provider Family Medicine
DX: M79.674 Pain in right toe(s) (principal)
CPT/HCPCS: 36415; 73630; 84550

== ENCOUNTER 2021-09-19 06:00 | Outpatient (RCR) | payer MEDICARE, OTHER, SELFPAY | END 2021-10-18 23:59 | disposition home or self-care (01) | LOC: SPT 06:00 | PROVIDERS: PCP Family Medicine; Referring Provider Student in an Organized Health Care Education/Training Program; Visit Provider Student in an Organized Health Care Education/Training Program | DX: Z47.1 Aftercare following joint replacement surgery (principal); Z96.652 Presence of left artificial knee joint | CPT/HCPCS: 97110 ==

== ENCOUNTER → 2022-01-16 11:11 | Outpatient (BNVA) | payer MEDICARE, OTHER, SELFPAY | PROVIDERS: PCP Family Medicine; Visit Provider Family Medicine | DX: I48.91 Unspecified atrial fibrillation (principal); E03.2 Hypothyroidism due to medicaments and other exogenous substances; I10 Essential (primary) hypertension; E79.0 Hyperuricemia without signs of inflammatory arthritis and tophaceous disease; E03.9 Hypothyroidism, unspecified | CPT/HCPCS: 80053; 80061; 84443; 84550; 85025 ==

== ENCOUNTER → 2022-02-20 14:09 | Outpatient (BNVA) | payer MEDICARE, OTHER, SELFPAY | PROVIDERS: PCP Family Medicine; Visit Provider Internal Medicine Cardiovascular Disease | DX: I48.11 Longstanding persistent atrial fibrillation (principal); I10 Essential (primary) hypertension; I26.99 Other pulmonary embolism without acute cor pulmonale; E03.2 Hypothyroidism due to medicaments and other exogenous substances | CPT/HCPCS: 99214 ==

== ENCOUNTER → 2022-05-02 15:11 | Outpatient (BNVA) | payer MEDICARE, OTHER, SELFPAY | PROVIDERS: PCP Family Medicine; Visit Provider Internal Medicine Pulmonary Disease | DX: J30.9 Allergic rhinitis, unspecified (principal); Z86.711 Personal history of pulmonary embolism; Z79.01 Long term (current) use of anticoagulants; Z87.891 Personal history of nicotine dependence | CPT/HCPCS: 99214 ==

== ENCOUNTER → 2022-09-04 13:55 | Outpatient (BNVA) | payer MEDICARE, OTHER, SELFPAY | PROVIDERS: PCP Family Medicine; Visit Provider Internal Medicine Cardiovascular Disease | DX: I26.99 Other pulmonary embolism without acute cor pulmonale (principal); R94.39 Abnormal result of other cardiovascular function study; I10 Essential (primary) hypertension; E03.2 Hypothyroidism due to medicaments and other exogenous substances; I48.91 Unspecified atrial fibrillation; Z87.891 Personal history of nicotine dependence | CPT/HCPCS: 99214 ==

== ENCOUNTER → 2023-03-05 08:29 | Outpatient (BNVA) | payer MEDICARE, OTHER, SELFPAY | PROVIDERS: PCP Family Medicine; Visit Provider Obstetrics & Gynecology | DX: R30.0 Dysuria (principal) | CPT/HCPCS: 76830; 84315 ==

== ENCOUNTER → 2023-03-20 14:00 | Outpatient (BNVA) | payer MEDICARE, OTHER, SELFPAY | PROVIDERS: PCP Family Medicine; Visit Provider Nurse Practitioner Family | DX: I48.91 Unspecified atrial fibrillation (principal); Z79.01 Long term (current) use of anticoagulants; I10 Essential (primary) hypertension; Z87.891 Personal history of nicotine dependence | CPT/HCPCS: 99214 ==

== ENCOUNTER → 2023-05-01 10:15 | Outpatient (BNVA) | payer MEDICARE, OTHER, SELFPAY | PROVIDERS: PCP Family Medicine; Visit Provider Internal Medicine Pulmonary Disease | DX: I26.99 Other pulmonary embolism without acute cor pulmonale (principal); J30.1 Allergic rhinitis due to pollen; Z79.01 Long term (current) use of anticoagulants; Z87.891 Personal history of nicotine dependence | CPT/HCPCS: 99214 ==

== ENCOUNTER 2023-06-10 15:08 | Observation (INO) | payer MEDICARE, OTHER, SELFPAY ==
--- NOTE | 2023-06-05 10:01 | ECG_ITS ---
[facility] Test Date: 2023-06-05 Pat Name: Kristen Jimenes Department: Room: Gender: Female Operator Technician: : 1945 Requested By: Tito Geronimo Order Number: [id number] Leslie MD: Peter Moncada M.D. Measurements Intervals Marine Rate: 67 P: 15 TN: 188 QRS: -33 QRSD: 150 T: 61 QT: 426 QTc: 453 Interpretive Statements SINUS RHYTHM LEFT AXIS DEVIATION [QRS AXIS < -30] LEFT BUNDLE BRANCH BLOCK [120+ ms QRS DURATION, 80+ ms Q/S IN V1/V2, 85+ ms R IN I/aVL/V5/V6] Compared to ECG 12/15/2019 18:34:24 No significant changes Electronically Signed On 06-05-2023 12:05:44 SAND BLASTER by Peter Moncada M.D. [id number]
[2023-06-05 10:48] LABS: Add Urine Microscopic? NO; Charge for UA Resulting for Rev
[2023-06-05 10:51] LABS: Basophils # 0.1 10^3/uL (0.0-0.1); Basophils % 1.1 %; Eosinophils # 0.1 10^3/uL (0.0-0.8); Hematocrit 36.8 % (36-47); Lymphocytes % 37.2 %; Mean Corpuscular HGB Conc 33.2 g/dL (30-55); Mean Corpuscular Hemoglobin 29.7 pg (27-33); Mean Corpuscular Volume 89.5 fl (85-98); Mean Platelet Volume 9.8 fL (7.4-10.4); Monocytes # 0.4 10^3/uL (0.2-0.9); Monocytes % 7.3 %; Neutrophils % 52.2 %; Nucleated Red Blood Cells % 0 %; Platelet Count 235 10^3/cmm (157-399); Red Blood Count 4.11 10^6/uL (3.85-5.65); Red Cell Distribution Width 12.6 % (12.1-15.1); White Blood Count 5.37 10^3/uL (3.29-11.43)
[2023-06-05 10:59] LABS: Bilirubin Urine Neg (Negative); Blood Urine Neg (Negative); Glucose Urine UA Norm (Normal); Ketones Urine Negative (Negative); Leukocyte Esterase Urine Negative (Negative); Nitrate Urine Negative (Negative); Protein Urine Neg (Negative); Specific Gravity, Urine 1.015 (1.005-1.030); Urine Appearance Clear (CLEAR); Urine Color Yellow (Yellow); Urobilinogen Urine Norm (Negative); pH Urine 6 (5-7)
[2023-06-05 11:12] LABS: Alanine Aminotransferase 18 U/L (0-33); Albumin Level 4.4 g/dL (3.5-5.2); Alkaline Phosphatase 107 U/L (35-105); Anion Gap 15.2 (5-19); Aspartate Amino Transferase 21 U/L (0-32); Blood Urea Nitrogen 15 mg/dL (8-23); Calcium 9.2 mg/dL (8.5-10.5); Carbon Dioxide 26 mmol/L (22-29); Chloride 104 mmol/L (98-107); Globulin 2.5 g/dL (1.3-4.6); Glucose 100 mg/dL (65-115); Osmolality Calculated 293 mOsm/kg (285-295); Potassium 4.2 mmol/L (3.5-5.1); Sodium 141 mmol/L (136-145); Total Bilirubin 0.4 mg/dL (0.15-1.2); Total Protein 6.9 g/dL (6.6-8.7)
--- NOTE | 2023-06-05 11:14 | P.ANESASSM_ITS ---
Pre-Anesthetic Assessment Height/Weight: Height 1.65 m Operation Date: 06/10/23 11:00 Proposed Procedures p otal vaginal hysterectomy 63405, single incision sling 27736, Anterior and posterior colporrhaphy 01586,N81.10,N81.9,N81.6(Not Applicable) - Tito Haider MD s Sling Single Incision Sling(Not Applicable) - Tito Haider MD s Anterior Repair Anterior Colporrhaphy(Not Applicable) - Tito Haider MD s Posterior Repair Posterior Colporrhaphy(Not Applicable) - Tito Haider MD Familial anesthetic complications: PONV Was Beta Bao taken within 24 hours: Yes Was Clonidine taken within 24 hours: N/A Social No alcohol and No tobacco Exam alert, oriented x 3, clear to auscultation bilaterally and regular rate & rhythm Airway Submandibular: within normal limits Cervical ROM: within normal limits Mallampati: Class II Dentition: false (upper) and partials (lower) Pulmonary h/o PE (anticoagulation) CV/HEM Atrial Fibrillation, Arrythmia (LBBB) and Hypertension Metabolic Hyperlipidemia and Thyroid Disease Anesthetic Plan ASA status: 3 Anesthesia: General Medications/Allergies Home Medications Medication Instructions Recorded Confirmed Last Taken Type ascorbic acid (vitamin C) 250 mg 250 mg PO DAILY 12/14/19 06/05/23 1 Day Ago History tablet (Vitamin C) ~06/04/23 lutein 10 mg tablet 20 mg PO DAILY 12/14/19 06/05/23 1 Day Ago History ~06/04/23 lhsjwcxahvke-En-lgzu-minerals 1 tab PO DAILY 12/14/19 06/05/23 1 Day Ago History (Multiple Vitamin, Womens tablet) ~06/04/23 omega 9-ehc-ezp-fish oil 300 1 cap PO DAILY 12/14/19 06/05/23 1 Day Ago History mg-1,000 mg capsule (Fish Oil) ~06/04/23 omeprazole magnesium 20 mg 20 mg PO DAILY 12/14/19 06/05/23 1 Day Ago History tablet,delayed release (Prilosec ~06/04/23 OTC) lactobacillus combination no.9 4 4,000 mmu cells PO DAILY 08/24/20 06/05/23 Unknown History billion cell capsule (Adult 50 Plus Probiotic) azelastine 137 mcg (0.1 %) nasal 1 spray intranasal BID PRN 02/20/22 06/05/23 Unknown History spray aerosol allergies amlodipine 5 mg tablet See Rx Instructions .Route 08/19/22 06/05/23 1 Day Ago Rx .COMPLEX #90 tabs ~06/04/23 apixaban 2.5 mg tablet (Eliquis) 2.5 mg PO BID #180 tabs 09/04/22 06/05/23 1 Day Ago Rx ~06/04/23 isosorbide mononitrate 60 mg 60 mg PO DAILY #90 tabs 10/22/22 06/05/23 1 Day Ago Rx tablet,extended release 24 hr ~06/04/23 losartan 50 mg tablet See Rx Instructions .Route 12/04/22 06/05/23 1 Day Ago Rx .COMPLEX #90 tabs ~06/04/23 levothyroxine 88 mcg tablet See Rx Instructions .Route 03/27/23 06/05/23 1 Day Ago Rx .COMPLEX #90 tabs ~06/04/23 alprazolam 0.5 mg tablet 0.5 mg PO BID PRN anxiety/stress 05/01/23 06/05/23 Unknown History atorvastatin 20 mg tablet 20 mg PO DAILY 06/05/23 06/05/23 1 Day Ago History ~06/04/23 loratadine 10 mg tablet 10 mg PO DAILY 06/05/23 06/05/23 Unknown History metoprolol succinate 50 mg 50 mg PO DAILY 06/05/23 06/05/23 1 Day Ago History tablet,extended release 24 hr ~06/04/23 Allergies Allergy/AdvReac Type Severity Reaction Status Date / Time tetanus toxoid, adsorbed Allergy Severe redness or Verified 06/05/23 10:05 swelling amoxicillin Allergy ALGY-Rash Verified 06/05/23 10:05 Iodinated Contrast Media Allergy RASH Verified 06/05/23 10:05 pneumovax Allergy Severe Unknown Uncoded 06/05/23 10:05 [facility] Anesthesia Medical History Abnormal nuclear stress test Cardiac arrhythmia History of normal mammogram Normal colonoscopy Diverticulosis Hypothyroidism Hypertension Surgical History Hx laparoscopic cholecystectomy Family History Mother Clotting disorder Mother had clotting disorder in her 40s and was on Coumadin CAD (coronary artery disease) Father CAD (coronary artery disease) Diabetes Lung disease Grandmother Cancer Denies family history of Dementia Chronic kidney disease (CKD) Suicide Anesthesia complication Bleeding disorder Stroke Social History Smoking and tobacco/nicotine status: former use of tobacco/nicotine Quit status (tobacco/nicotine): has quit using Former quit date comment: approx 2 packs per week from age [age] Alcohol intake: never Substance/Drug Use: never Lives independently: Yes Housing: House Do you think of yourself as: Straight/Heterosexual Current gender identity: Female Data Anesthesia 06/05/23 10:35 06/05/23 10:35 Short CBC 06/05/23 Range/Units 10:35 WBC 5.37 (3.29-11.43) 10^3/uL Hgb 12.20 (11.27-16.99) g/dL Hct 36.8 (36-47) % MCV 89.5 (85-98) fl Plt Count 235 (157-399) 10^3/cmm Neut % (Auto) 52.2 % Neut # (Auto) 2.80 (1.8-7.7) 10^3/uL BMP 06/05/23 10:35 Sodium 141 Potassium 4.2 Chloride 104 Carbon Dioxide 26 BUN 15 Creatinine 0.9 Glucose 100 Calcium 9.2 Liver Function 06/05/23 Range/Units 10:35 Total Bilirubin 0.4 (0.15-1.2) mg/dL AST 21 (0-32) U/L ALT 18 (0-33) U/L Alkaline Phosphatase 107 H (35-105) U/L Albumin 4.4 (3.5-5.2) g/dL Urine 06/05/23 Range/Units 10:35 Urine Color Yellow (Yellow) Urine Appearance Clear (CLEAR) Urine pH 6 (5-7) Ur Specific [place] 1.015 (1.005-1.030) Urine Protein Neg (Negative) Urine Glucose (UA) Norm (Normal) Urine Ketones Negative (Negative) Urine Nitrate Negative (Negative) Urine Bilirubin Neg (Negative) Ur Leukocyte Esterase Negative (Negative) Cardiac Studies: 2 Echocardiogram Ultrasound 05/31/20 Sestamibi Stress Test (Cardiology) 01/31 Cardiac Event Monitor 09/04/22
[2023-06-10] VITALS (9 sets, daily range): BP systolic 112–158; BP diastolic 58–101; PULSE 77–90; RESP 16–18; TEMP 36.4–36.7; O2SAT 90–98; BMI 27.3
[2023-06-10] MEDS: sodium chloride 0.9% 1,000 ML 30 ML IV (11:10)
--- NOTE | 2023-06-10 11:48 | W.PM.OPSUD ---
Surgery/Procedure H&P Update DATE OF PROCEDURE: June 10, 2023 DATE H&P PERFORMED: 06/02/23 H&P UPDATE INFORMATION: I have reviewed H&P completed within last 30 days, I have examined patient prior to procedure and No changes to prior documentation PREOP DIAGNOSIS: uterine prolapse, cystocele, rectocele PLANNED PROCEDURE: Operation Date: 06/10/23 12:00 Proposed Procedures p otal vaginal hysterectomy 86904, single incision sling 85705, Anterior and posterior colporrhaphy 65482,N81.10,N81.9,N81.6(Not Applicable) - Tito Haider MD s Sling Single Incision Sling(Not Applicable) - Tiot Haider MD s Anterior Repair Anterior Colporrhaphy(Not Applicable) - Tito Haider MD s Posterior Repair Posterior Colporrhaphy(Not Applicable) - Tito Haider MD
[2023-06-10] MEDS: vancomycin 1,000 MG in sodium chloride 0.9% 250 ML 250 MG IV (12:15)
[2023-06-10] MEDS: levofloxacin-dextrose 5 % 500 MG/100 ML PREMIX 100 MG IV (12:17)
[2023-06-10] MEDS: scopolamine 1.5 Patch 1 PATCH TRANSDERMA (12:20)
[2023-06-10] MEDS: lidocaine-epi 2% PF 1:200,000 20 mL SDV INJECTION ×2 (12:52→14:02)
--- NOTE | 2023-06-10 14:56 | P.OP_ITS ---
Operative Report Date of procedure: June 10, 2023 Pre-op diagnosis: Pelvic organ prolapse Cystocele Rectocele Post-op diagnosis: same Procedure done: Total vaginal hysterectomy Anterior colporrhaphy augmented with allograft Single incision mid urethral sling Posterior colporrhaphy Cystoscopy Implants: Coloplast Altis mid urethral sling Coloplast dermis allograft Specimens removed/disposition: Uterus Surgeon: Tito Haider MD Estimated blood loss (mL): 25 Urine output (mL): 200 Complications: None Procedure: After informed consent and risks, benefits, indications and alternatives reviewed with the patient was taken to the operating room. The patient was placed in dorsal lithotomy position prepped, and draped in the usual sterile fashion. The pre-procedure timeout verifying the correct patient, procedure, site and side, could not requirements was performed and acknowledge by the OR team. A Villatoro catheter was placed. A Bookwalter vaginal retractor was placed into the vagina in usual manner visualize the cervix. Cervix was grasped with a single tooth tenaculum and circumferentially infiltrated with 2% lidocaine with epinephrine. Then cervix was circumferentially incised with bovie and the bladder was dissected off the pubovesical cervical fascia anteriorly with a sponge stick and Metzenbaum scissors. The anterior peritoneal reflection was identified and the anterior cul-de-sac was entered sharply with Metzenbaum scissors. The same procedure was performed posteriorly and a posterior colpotomy was made through the posterior cul-de-sac space without difficulty and the posterior blade of the Bookwalter vaginal retractor was advanced posteriorly into the cul-de-sac. At this time, the left and right uterosacral ligaments were isolated and ligated with 0 Vicryl. The LigaSure device was placed over the uterosacral ligaments on either side and was then used in a serial fashion up through the cardinal ligaments bilaterally cross-clamped, cut, and sealed with the LigaSure device. Finally, the uterine arteries were cross-clamped, cut, sealed and ligated with the LigaSure device. Hemostasis was assured. The broad ligaments were then serially clamped, sealed and cut with the LigaSure device on both sides. Excellent hemostasis was visualized. Both cornua were clamped, sealed and cut with the LigaSure device. Then the pedicles were then suture ligated with excellent hemostasis. The uterus was excised and submitted for pathologic evaluation. No other abnormalities were noted in the pelvic cavity. The peritoneum was then closed in a pursestring fashion with 0 Vicryl suture. The vaginal cuff angles were closed with [id number] #0 Vicryl suture on both sides and transfixed with the ipsilateral cardinal and uterosacral ligaments. The remainder of the vaginal cuff was closed with #0 Vicryl in a running locked fashion. A vertical midline incision was made beneath the midurethra, nearly 1.5 cm length. Careful submucosal dissection was performed bilaterally up to the interior portion of the inferior pubic ramus. The insertion of adductor longus tendon on the patient?s pubic ramus was identified as reference land nyasia. Palpated the notch along the internal edge of ischiopubic ramus where the adductor longus tendon and the inferior pubic ramus meet. The Altis single incision sling (SIS) was selected. Then the needle of the SIS inserted aiming at the location of this notch. One of the integrated self-fixating tips place onto the needle by sliding it over the end of the needle. The needle/sling assembly was inserted toward the location of identified reference notch making sure that the flat of the handle is perpendicular to the desired path. The needle was tracked along the posterior surface of the ischiopubic ramus until the midline nyasia on the mesh is approximately at the midline position under the urethra. The needle was removed and the same was repeated on the contralateral side until the appropriate sling tension under the urethra was achieved ensuring that the mesh lays flat. The needle was removed and vaginal incision was closed in a running interlocking fashion with 2-0 Vicryl. The vaginal mucosa was then injected in the midline with 2% lidocaine with epinephrine. The vaginal mucosa was scored in the midline with the Bovie approxi mately 1 cm medial to the urethral meatus to 1 cm distal to the vaginal cuff. This vaginal mucosa was then undermined and then incised in the midline with the Metzenbaum scissors. The lateral aspects of the vaginal mucosa were then grasped with the Allis clamps and the vaginal mucosa was then dissected off the underlying fascia with the Metzenbaum scissors. Again, there was noted to be quite a bit of oozing at the incision, which was controlled with cautery. After adequate dissection was performed, bilaterally. An Coloplast dermis allograft was modified at time of application to fit spacea, 3 x 3 cm piece . The dermis allograft was placed in front of cystocele ready to be implanted facing the vagina mucosa. Suture is placed at distal end of graft and placed towards vaginal cuff. Final suture is placed on proximal portion of the graft to complete the placement overlying the bladder. Then Interrupted vertical mattress sutures of 0 Vicryl were used to elevate the cystocele superiorly. The excessive vaginal mucosa was then trimmed with the Metzenbaum scissors and the vaginal mucosa was then reapproximated in the running interlocking fashion with 2-0 Vicryl. A posterior repair was performed next. An incision was made across the introitus. Metzenbaum scissors were used to tunnel beneath posterior vaginal mucosa until the apex of the rectocele bulge was reached. At this point, the rectum was from the posterior vaginal mucosa using sharp and blunt dissection, and the rectal bulge imbricated in the midline with interrupted sutures of 2-0 vicryl suture. Levator ani muscles on either side were approximated in the midline with interrupted 0 Vicryl sutures. Excess posterior vaginal mucosa was excised, and the vaginal episiotomy was repaired by approximating the posterior vaginal mucosa with a suture of Vicryl #0. At this time, instruments were removed from the vagina at hemostasis assured. Then the Villatoro catheter was removed and cystoscope was inserted. The bladder was filled with sterile water. Complete evaluation of the bladder mucosa was performed noting no lacerations, dimpling, tears, bleeding of the mucosa or muscular layers. Both ureteral orifices were identified. Prompt excretion of urine from both ureteral orifices was noted. Cystoscope was withdrawn. Villatoro catheter was then placed yielding clear johnnie urine. A vaginal packing with Premarin cream was placed and the patient was taken out of dorsal lithotomy position and awakened from the general anesthesia. The patient tolerated the procedure well and was taken to the PACU recovery room in a stable condition. Sponge, lap, needle and instruments counts were correct x3.
--- NOTE | 2023-06-10 15:36 | ANE.PACU2 ---
Inpatient post-anesthesia follow up: Airway intact: Yes Vital signs: Temperature 97.8 F Pulse Rate 88 Respiratory Rate 16 Blood Pressure 112/60 Pulse Oximetry 90 Oxygen Delivery Me thod Room Air Oxygen Flow Rate 6 Fraction of Inspir ed Oxygen Hydration adequate: Yes Nausea and vomiting: No Pain level: 1 Mental status: Baseline
[2023-06-10] MEDS: ketorolac 30 mg/mL INJ IVP ×2 (16:38→21:51)
[2023-06-10] MEDS: docusate sodium 100 mg Capsule PO (18:36)
[2023-06-10] MEDS: apixaban 5 mg Tablet 2.5 MG PO (18:36)
[2023-06-10] MEDS: ALPRAZolam 0.5 mg Tablet PO (22:24)
[2023-06-11 00:06] VITALS: BP 130/75; PULSE 83; RESP 16; O2SAT 98
[2023-06-11] MEDS: ketorolac 30 mg/mL INJ IVP (03:46)
[2023-06-11 05:50] VITALS: BP 132/62; PULSE 64; RESP 16; O2SAT 94
--- NOTE | 2023-06-11 05:51 | PC.NURSE ---
Vaginal packing removed at 0500. Packing intact. Patient tolerated well.
[2023-06-11 05:54] LABS: Hematocrit 31.6 % (36-47); Mean Corpuscular HGB Conc 32.6 g/dL (30-55); Mean Corpuscular Hemoglobin 29.9 pg (27-33); Mean Corpuscular Volume 91.6 fl (85-98); Platelet Count 190 10^3/cmm (157-399); Red Blood Count 3.45 10^6/uL (3.85-5.65); Red Cell Distribution Width 12.7 % (12.1-15.1)
[2023-06-11] MEDS: isosorbide mononitrate ER 30 mg Tablet 60 MG PO (09:13)
[2023-06-11] MEDS: atorvastatin 40 mg Tablet PO (09:14)
[2023-06-11] MEDS: multivitamin therapeutic Tablet 1 TAB PO (09:14)
[2023-06-11] MEDS: losartan 50 mg Tablet PO (09:14)
[2023-06-11] MEDS: metoprolol succinate ER (24 HR) 50 mg Tablet PO (09:14)
[2023-06-11] MEDS: docusate sodium 100 mg Capsule PO (09:14)
[2023-06-11] MEDS: pantoprazole DR 40 mg Tablet PO (09:15)
[2023-06-11] MEDS: amlodipine 5 mg Tablet PO (09:15)
[2023-06-11] MEDS: apixaban 5 mg Tablet 2.5 MG PO (09:15)
[2023-06-11 10:25] VITALS: BP 127/60; PULSE 55; TEMP 36.9; O2SAT 93
--- NOTE | 2023-06-11 11:18 | PM.OBGYDC ---
Discharge Providers IRRIGATION PUMP INSTALLER Date of Admission: 06/10/23 15:08 Date of Discharge: 06/11/23 Attending Provider at Admission: Tito Haider MD Attending Provider at Discharge: Tito Haider MD Primary Care Provider: Leon Epps DO Reason for Visit Reason for Visit: [id number], N816 Hospital Course Hospital Course Mrs. Jimenes 77 y/o female with hx of uterine prolapse, cystocele and rectocele. Admitted for a planned vaginal hysterectomy, anterior colporrhaphy augmented with allograft, single incision mid urethral sling, and posterior colporrhaphy. The procedures were performed without complications. Overnight observation was uneventful. She is afebrile and hemodynamically stable postoperative day 1. Tolerating diet well. Ambulating without difficulty. She was counseled regarding pelvic rest for 6 weeks (no sex, no tampons, no vaginal douches). Return to the emergency room if any fever, increased bleeding or pain. Physical Exam Narrative: GA: Alert and oriented ?3. HEENT: WNL. Heart: Regular rate and rhythm. Lungs: Clear to auscultation bilaterally. Abdomen: Bowel sounds present, nontender. DIRECTOR OF COMPLIANCE: No bleeding. Extremities: No edema, no cyanosis, no calves pain. Urinary Catheter Management: Villatoro: Cath Placed During This Visit: yes, but has since been removed by the nurse Reason for Continuing Indwelling Catheter: Perioperative Use in Selected Surgeries Urinary Catheter Date of Insertion: 06/10/23 Urinary Catheter Time of Insertion: 12:46 Date Urinary Catheter Removed: 06/11/23 Time Urinary Catheter Discontinued: 05:00 History History History 2 Term 2 0 Miscarriages/Ectopic 0 Living Children 2 Discharge Data Studies Completed and Pending Pending at discharge Category Date Time Status Pathology: Surgical [PTH] Routine Pth 06/10/23 13:20 Received Laboratory Results WBC 9.30 10^3/uL (3.29-11.43) 06/11/23 05:00 RBC 3.45 10^6/uL (3.85-5.65) L 06/11/23 05:00 Hgb 10.30 g/dL (11.27-16.99) L 06/11/23 05:00 Hct 31.6 % (36-47) L 06/11/23 05:00 MCV 91.6 fl (85-98) 06/11/23 05:00 MCH 29.9 pg (27-33) 06/11/23 05:00 MCHC 32.6 g/dL (30-55) 06/11/23 05:00 RDW 12.7 % (12.1-15.1) 06/11/23 05:00 Plt Count 190 10^3/cmm (157-399) 06/11/23 05:00 MPV 10.0 fL (7.4-10.4) 06/11/23 05:00 Neut % (Auto) 52.2 % 06/05/23 10:35 Lymph % (Auto) 37.2 % 06/05/23 10:35 [place] % (Auto) 7.3 % 06/05/23 10:35 Eos % (Auto) 2.0 % 06/05/23 10:35 Baso % (Auto) 1.1 % 06/05/23 10:35 Neut # (Auto) 2.80 10^3/uL (1.8-7.7) 06/05/23 10:35 Lymph # (Auto) 2.0 10^3/uL (0.8-4.8) 06/05/23 10:35 [place] # (Auto) 0.4 10^3/uL (0.2-0.9) 06/05/23 10:35 Eos # (Auto) 0.1 10^3/uL (0.0-0.8) 06/05/23 10:35 Baso # (Auto) 0.1 10^3/uL (0.0-0.1) 06/05/23 10:35 Nucleated RBC % (auto) 0 % 06/05/23 10:35 Nucleated RBCs # 0.0 /100WBC 06/05/23 10:35 Sodium 141 mmol/L (136-145) 06/05/23 10:35 Potassium 4.2 mmol/L (3.5-5.1) 06/05/23 10:35 Chloride 104 mmol/L (98-107) 06/05/23 10:35 Carbon Dioxide 26 mmol/L (22-29) 06/05/23 10:35 Anion Gap 15.2 (5-19) 06/05/23 10:35 BUN 15 mg/dL (8-23) 06/05/23 10:35 Creatinine 0.9 mg/dL (0.5-0.9) 06/05/23 10:35 GFR Calculation Not Reportable 06/05/23 10:35 Glucose 100 mg/dL (65-115) 06/05/23 10:35 Calculated Osmolality 293 mOsm/kg (285-295) 06/05/23 10:35 Calcium 9.2 mg/dL (8.5-10.5) 06/05/23 10:35 Total Bilirubin 0.4 mg/dL (0.15-1.2) 06/05/23 10:35 AST 21 U/L (0-32) 06/05/23 10:35 ALT 18 U/L (0-33) 06/05/23 10:35 Alkaline Phosphatase 107 U/L (35-105) H 06/05/23 10:35 Total Protein 6.9 g/dL (6.6-8.7) 06/05/23 10:35 Albumin 4.4 g/dL (3.5-5.2) 06/05/23 10:35 Globulin 2.5 g/dL (1.3-4.6) 06/05/23 10:35 Urine Color Yellow (Yellow) 06/05/23 10:35 Urine Appearance Clear (CLEAR) 06/05/23 10:35 Urine pH 6 (5-7) 06/05/23 10:35 Ur Specific [place] 1.015 (1.005-1.030) 06/05/23 10:35 Urine Protein Neg (Negative) 06/05/23 10:35 Urine Glucose (UA) Norm (Normal) 06/05/23 10:35 Urine Ketones Negative (Negative) 06/05/23 10:35 Urine Blood Neg (Negative) 06/05/23 10:35 Urine Nitrate Negative (Negative) 06/05/23 10:35 Urine Bilirubin Neg (Negative) 06/05/23 10:35 Urine Urobilinogen Norm mg/dL (Negative) 06/05/23 10:35 Ur Leukocyte Esterase Negative (Negative) 06/05/23 10:35 Blood Type A Positive 06/10/23 11:00 Rho(D) Type Rh positive 06/10/23 11:00 Antibody Screen Negative 06/10/23 11:00 Vitals Last Vital Signs Temp 98.0 F 06/10/23 17:30 Pulse 64 06/11/23 05:50 Resp 16 06/11/23 05:50 BP 132/62 06/11/23 05:50 Pulse Ox 94 06/11/23 05:50 O2 Del Method Room Air 06/11/23 05:50 O2 Flow Rate 6 06/10/23 15:06 Results Labs OB ([facility]): Blood Type A Positive 06/10/23 Antibody Screen Negative 06/10/23 Hct 31.6 % (36-47) L 06/11/23 Hgb 10.30 g/dL (11.27-16.99) L 06/11/23 Rho(D) Type Rh positive 06/10/23 Plt Count 190 10^3/cmm (157-399) 06/11/23 TSH 1.56 uIU/mL (0.27-4.20) 01/16/22 Uric Acid 7.9 mg/dL (2.4-5.7) H 01/16/22 Discharge Plan Discharge Patient Disposition: Home Condition: Stable Prescriptions: New hydrocodone-acetaminophen 5-325 mg tablet 1 tab PO Q4H PRN (Reason: pain) Qty: 10 0RF acetaminophen 325 mg capsule 325 mg PO Q4H PRN (Reason: fever or pain) Qty: 60 0RF ibuprofen 800 mg tablet 800 mg PO TID PRN (Reason: pain) Qty: 60 0RF Mineral Oil Light Oil See Rx Instructions .ROUTE .COMPLEX Qty: 500 0RF Rx Instructions: 1 teaspoon p.o. at bedtime Continued Adult 50 Plus Probiotic 4 billion cell capsule 4,000 mmu cells PO DAILY Rx Instructions: administer with a meal azelastine 137 mcg (0.1 %) aerosol,spray 1 spray intranasal BID PRN (Reason: allergies) Rx Instructions: administer into each nostril alprazolam 0.5 mg tablet 0.5 mg PO BID PRN (Reason: anxiety/stress) Eliquis 2.5 mg tablet 2.5 mg PO BID Qty: 180 3RF amlodipine 5 mg tablet See Rx Instructions .ROUTE .COMPLEX Qty: 90 3RF Dose Instruction: TAKE 1 TABLET BY MOUTH EVERY DAY Rx Instructions: TAKE 1 TABLET BY MOUTH EVERY DAY isosorbide mononitrate 60 mg tablet extended release 24 hr 60 mg PO DAILY Qty: 90 3RF Rx Instructions: Dose increased losartan 50 mg tablet See Rx Instructions .ROUTE .COMPLEX Qty: 90 3RF Dose Instruction: TAKE 1 TABLET BY MOUTH EVERY DAY Rx Instructions: TAKE 1 TABLET BY MOUTH EVERY DAY levothyroxine 88 mcg tablet See Rx Instructions .ROUTE .COMPLEX Qty: 90 1RF Dose Instruction: TAKE 1 TABLET BY MOUTH EVERY DAY FOR THYROID Rx Instructions: TAKE 1 TABLET BY MOUTH EVERY DAY FOR THYROID ascorbic acid (vitamin C) [Vitamin C] 250 mg Tablet 250 mg PO DAILY Multiple Vitamin, Womens Tablet 1 tab PO DAILY omeprazole magnesium [Prilosec OTC] 20 mg Tablet,Delayed Release (Dr/Ec) 20 mg PO DAILY lutein 10 mg Tablet 20 mg PO DAILY omega [id number]-bjg-[id number]-fish oil [Fish Oil] 300-1,000 mg Capsule 1 cap PO DAILY atorvastatin 20 mg tablet 20 mg PO DAILY metoprolol succinate 50 mg tablet extended release 24 hr 50 mg PO DAILY loratadine 10 mg tablet 10 mg PO DAILY Discharge Orders: Discharge Order (Routine); Ordered 06/11/23 Ordered By: Tito Haider Referrals: Tito Haider MD [Physician] - 2 weeks Discharge Diet: Soft Mechanical Discharge Activity: Limit activity as instructed Patient Instructions: Bladder Sling for Women (DC), Vaginal Hysterectomy (GEN), Anterior Vaginal Repair (GEN), Posterior Vaginal Repair (GEN), Opioid Safety Activity Restrictions/Additional Instructions: 1. Please call [facility] on next working day to make your post-operative appointment in 2 weeks. 2. Please stay home until you come back to the clinic on first post-hospatilization check up. 3. Please follow instructions on your medications CAREFULLY. 4. If you have abdominal incision, do not cover it unless dressing is necessary because of drainage. OK to shower, but avoid bath. Leave steri-strips until they fall off. If they are still on one week after surgery, you may remove them. 5. If you had vaginal surgery or vaginal repair, Dr. Haider may instruct you to take SITZ bath. 6. Yellow, blood tinged odorous vaginal discharge is usually normal after hysterectomy or vaginal surgeries. 7. No SEXUAL INTERCOURSE, tampons, or douches until you are completely released from the post-operative care. 8. Avoid constipation by eating right and maybe using some Metamucil or Milk of Magnesia. 9. All prescription refills are given during the working hours. Please do no wait till it runs out. Call the clinic at [phone] before your medication runs out. The clinic will get in touch with your doctor to prescribe medications if necessary. 10. Please remain within 40 mile radius from our hospital because emergencies do happen now and then during the post-operative period. 11. If you have stairs at home, take one step at a time slowly and minimize the number of trips. It helps to stay in one floor for the next few days. No lifting except what you can lift by one hand until you are released from the post-operative care. 12. Driving is discouraged until you are well healed. It may be 3-4 weeks before you feel strong enough to drive. You should be able to turn and look through the rear window without pain and you should be able to push the brake pedal very hard without pain before you drive. No fast rules, but SAFETY should be your primary concern. DO NOT drive if you are on sedating medications such as narcotics. 13. Call the clinic (during working hours) to make urgent appointment or go to the Emergency room, if any of the following occurs: i. Vaginal bleeding becomes heavy, more than a period. ii. Incision becomes red and sore, or drains pus. iii. Your TEMPERATURE is over 100.4F or you have chill. iv. IV site becomes red and swollen (a little ``knot?? is usually OK) v. Persistent nausea and vomiting vi. Persistent constipation or diarrhea vii. Rash or allergic reaction to medications. Discharge Attestations IRRIGATION PUMP INSTALLER Time Spent in Discharge Care*: greater than 30 min Coding Level of Care Code Acute Code for Chg Fwd
[2023-06-11] MEDS: acetaminophen 325 mg Tablet 650 MG PO (12:01)
[2023-06-11] MEDS: levothyroxine 88 mcg Tablet PO (12:02)
[2023-06-11] MEDS: ascorbic acid 500 mg Tablet 250 MG PO (12:03)
[2023-06-11] MEDS: loratadine 10 mg Tablet PO (12:04)
[2023-06-11 12:13] VITALS: BP 115/58; PULSE 60
[2023-06-11 12:44] VITALS: BP 115/58; PULSE 60
== END 2023-06-11 12:44 | disposition home or self-care (01) ==
LOC: OBGYN 15:09
PROVIDERS: Admitting Provider Obstetrics & Gynecology; PCP Family Medicine; Visit Provider Obstetrics & Gynecology
PROC: (CPT 57260; principal; 2023-06-10 11:50)
PROC: (CPT 57288; 2023-06-10 11:50)
PROC: 0JQC0ZZ Repair Pelvic Region Subcutaneous Tissue and Fascia, Open Approach (ICD-10-PCS; CPT 57240; 2023-06-10 11:50)
PROC: (CPT 57250; 2023-06-10 11:50)
DX: N81.4 Uterovaginal prolapse, unspecified (principal); N72 Inflammatory disease of cervix uteri; I48.91 Unspecified atrial fibrillation; I10 Essential (primary) hypertension; E78.5 Hyperlipidemia, unspecified; E03.9 Hypothyroidism, unspecified; Z87.891 Personal history of nicotine dependence; Z79.02 Long term (current) use of antithrombotics/antiplatelets
CPT/HCPCS: 57260; 57288; 58260; 36415; 51798; 80053; 81003; 85025; 85027; 86850; 86900; 88307; 93005; 96374; 96376; C1713; C1762; G0378; J1100; J1885; J1956; J2405; J2704; J3010; J3370; J3490; J7030; J7050

== ENCOUNTER → 2023-08-04 14:11 | Outpatient (BNVA) | payer MEDICARE, OTHER, SELFPAY | PROVIDERS: PCP Family Medicine; Visit Provider Internal Medicine Pulmonary Disease | DX: Z86.711 Personal history of pulmonary embolism (principal); J30.1 Allergic rhinitis due to pollen; R06.02 Shortness of breath; Z79.01 Long term (current) use of anticoagulants | CPT/HCPCS: 99214 ==

== ENCOUNTER → 2023-09-22 15:34 | Outpatient (BNVA) | payer MEDICARE, OTHER, SELFPAY | PROVIDERS: PCP Family Medicine; Visit Provider Internal Medicine Cardiovascular Disease | DX: I48.91 Unspecified atrial fibrillation (principal); I10 Essential (primary) hypertension; E03.2 Hypothyroidism due to medicaments and other exogenous substances; I26.99 Other pulmonary embolism without acute cor pulmonale; Z79.01 Long term (current) use of anticoagulants | CPT/HCPCS: 99214 ==

== ENCOUNTER 2023-09-26 14:33 | Outpatient (CLI) | payer MEDICARE, OTHER, SELFPAY ==
--- NOTE | 2023-09-26 14:45 | USCV_ITS ---
Kristen Jimenes Age: 77 Gender: F : 1945 Exam Date: 09/26/2023 14:44 Ordering Phys: Santos Cifuentes MD ([email or web address]) Technologist: JESSICA [place] [facility] [place]IB BP: 136 / 80 HR: 63 Rhythm: Sinus Technical Quality: Adequate MEASUREMENTS (Male / Female) Normal Values 2D ECHO LV Diastolic Diameter PLAX 4.8 cm 4.2 - 5.9 / 3.9 - 5.3 cm IVS Diastolic Thickness 1.5 cm 0.6 - 1.0 / 0.6 - 0.9 cm IVS Systolic Thickness 1.9 cm LVPW Diastolic Thickness 1.9 cm 0.6 - 1.0 / 0.6 - 0.9 cm LVPW Systolic Thickness 2.5 cm LVOT Diameter 2.0 cm LV Ejection Fraction 2D Teich 67.0 % LV Ejection Fraction MOD 2C 63.6 % LV Ejection Fraction 2C AL 64.3 % LA Diameter 3.7 cm RA Systolic Volume 4C AL 16.5 ml RA Systolic Volume 4C MOD 16.0 ml LA Sys Volume AL 31.7 cm cubed LA Sys Volume Index AL 17.2 cm cubed/m squared Aorta at Sinotubular Diameter 2.3 cm IVC Diameter 1.5 cm DOPPLER AV Peak Velocity 146.0 cm/s LVOT Peak Velocity 112.0 cm/s AV Area Cont Eq vti 2.4 cm squared AV Area Cont Eq pk 2.3 cm squared MV Peak Velocity 93.0 cm/s MV Area PHT 3.0 cm squared Mitral E to A Ratio 0.8 TR Peak Velocity 229.0 cm/s TR Peak Gradient 21.0 mmHg TR Mean Velocity 170.0 cm/s TR Mean Gradient 12.7 mmHg TR Velocity Time Integral 71.8 cm TV Peak E Velocity 61.0 cm/s Right Atrial Pressure 3.0 mmHg Pulmonary Artery Systolic Pressu 24.0 mmHg PV Peak Velocity 123.0 cm/s RV Ejection Time 0.3 s FINDINGS Left Ventricle Normal left ventricular size and systolic function, EF 64%.no regional wall motion abnormalities. Grade I/IV diastolic dysfunction (abnormal relaxation filling pattern), normal to mildly elevated filling pressures. Right Ventricle The right ventricle is normal in size and function. Right Atrium The right atrium is normal in size. Left Atrium Mildly increased left atrial size. Mitral Valve Trace mitral valve regurgitation. Aortic Valve No gross abnormalities noted Tricuspid Valve Trace tricuspid valve regurgitation. Estimated pulmonary artery peak systolic pressure 31 mmHg Pulmonic Valve No gross abnormalities noted Pericardium Normal pericardium without effusion. Aorta Normal ascending aorta dimension. IVC Normal inferior vena cava. CONCLUSIONS Normal left ventricular size and systolic function, EF 64%.no regional wall motion abnormalities. Grade I/IV diastolic dysfunction (abnormal relaxation filling pattern), normal to mildly elevated filling pressures. Trace tricuspid valve regurgitation. Estimated pulmonary artery peak systolic pressure 31 mmHg. Trace mitral valve regurgitation. Mildly increased left atrial size. There is no pericardial effusion. There are no intracardiac masses. Compared to the study from 05/31/2020, there may not be a significant change Dr Santos Cifuentes MD FACC (Electronically Signed) Final Date: 29 September 2023 10:07 S
== END 2023-09-26 14:34 | disposition home or self-care (01) ==
LOC: RAD 14:35
PROVIDERS: PCP Family Medicine; Visit Provider Internal Medicine Cardiovascular Disease
DX: R06.09 Other forms of dyspnea (principal); I11.9 Hypertensive heart disease without heart failure
CPT/HCPCS: 93306

== ENCOUNTER → 2024-03-31 14:06 | Outpatient (BNVA) | payer MEDICARE, OTHER, SELFPAY | PROVIDERS: PCP Family Medicine; Visit Provider Internal Medicine Cardiovascular Disease | DX: I48.91 Unspecified atrial fibrillation (principal); Z79.01 Long term (current) use of anticoagulants; I10 Essential (primary) hypertension; R94.39 Abnormal result of other cardiovascular function study; Z86.711 Personal history of pulmonary embolism; Z87.891 Personal history of nicotine dependence; E03.9 Hypothyroidism, unspecified | CPT/HCPCS: 99204 ==

== ENCOUNTER → 2025-04-04 13:07 | Outpatient (BNVA) | payer MEDICARE, OTHER, SELFPAY | PROVIDERS: PCP Family Medicine; Visit Provider Family Medicine | DX: I10 Essential (primary) hypertension (principal); I48.11 Longstanding persistent atrial fibrillation; E03.2 Hypothyroidism due to medicaments and other exogenous substances; R39.15 Urgency of urination; M17.11 Unilateral primary osteoarthritis, right knee; E79.0 Hyperuricemia without signs of inflammatory arthritis and tophaceous disease; E78.5 Hyperlipidemia, unspecified | CPT/HCPCS: 80053; 80061; 81000; 82306; 82607; 84443; 85025 ==